=== PATIENT | male | born 1965 | race Caucasian/White ===

== ENCOUNTER 2022-03-05 09:46 | Day surgery (SDC) | payer OTHER ==
[~2022-03-05] VITALS: Ht 177 cm; Wt 91.0 kg
[~2022-03-05 09:46] MED LIST: ASPI-624 PO; FLUO20CA25 PO; GABA300T PO; MTF500T PO
[2022-03-05] MEDS ORDERED: LIDOCAINE 1% INJ 20 ML VIAL ONE (09:51)
--- NOTE | 2022-03-05 19:06 | OPERATIVE REPORT ---
DATE OF SERVICE: 03/05/2022 PREOPERATIVE DIAGNOSIS: Implantable loop recorder at end of life. POSTOPERATIVE DIAGNOSIS: Implantable loop recorder at end of life. PROCEDURE PERFORMED: Implantable loop recorder explantation. DESCRIPTION OF PROCEDURE: [facility] The left prepectoral area, the site of previous implantable loop recorder implantation, was prepared and draped in the usual sterile fashion. Sharp and blunt dissection were used to open the pocket at the medial end of the device and the device was then pulled out from the pocket. The incision was closed with absorbable suture. He tolerated the procedure well. Job ID: [id number] DocumentID: [id number] Dictated Date: 03/05/2022 11:20:28 Hadoop Java Developer Date: 03/05/2022 19:05:46 Dictated By: TEVIN GALVAN MD, MA, FACP, FACC,
== END 2022-03-05 11:32 | disposition home or self-care (01) ==
LOC: CATH 09:46
PROVIDERS: ATTEND Internal Medicine Cardiovascular Disease
DX: Z45.2 Encounter for adjustment and management of vascular access device (principal); F17.210 Nicotine dependence, cigarettes, uncomplicated; E66.9 Obesity, unspecified; Z68.36 Body mass index [BMI] 36.0-36.9, adult; I10 Essential (primary) hypertension; E11.9 Type 2 diabetes mellitus without complications; I77.9 Disorder of arteries and arterioles, unspecified; E78.2 Mixed hyperlipidemia; Z79.899 Other long term (current) drug therapy
CPT/HCPCS: 33286

== ENCOUNTER 2022-04-03 05:43 | Outpatient (CLI) | payer OTHER ==
[~2022-04-03] VITALS: Ht 177.8 cm; Wt 83.9 kg
[2022-05-03] MEDS ORDERED: LISI10TA25 PO (15:17)
== END 2022-05-03 15:21 | disposition home or self-care (01) ==
LOC: PREOP 05:43
PROVIDERS: ATTEND Surgery
DX: Z01.818 Encounter for other preprocedural examination (principal); Z12.11 Encounter for screening for malignant neoplasm of colon

== ENCOUNTER 2022-05-14 09:17 | Day surgery (SDC) | payer OTHER ==
[~2022-05-14] VITALS: Ht 178 cm; Wt 83.9 kg
[2022-05-14] VITALS (7 sets, daily range): BP systolic 106–182; BP diastolic 53–96
[~2022-05-14 09:17] MED LIST changes: +LISI10TA25 PO
[2022-05-14] MEDS ORDERED: LACTATED RINGERS 1,000 ML IV STA (09:26)
[2022-05-14] MEDS ORDERED: HURRICAINE EXT TUBE (BENZOCAINE) XX PRN (09:30)
[2022-05-14] MEDS ORDERED: MIDAZOLAM 2 MG/2 ML (VERSED) VIAL ONE (09:53)
[2022-05-14] MEDS ORDERED: PROPOFOL INJECTION 50 ML IV ONE ×2 (09:53→10:44)
--- NOTE | 2022-05-14 11:47 | Discharge Inst-Simple/Standard ---
Discharge Inst-Standard Patient Instructions/Follow Up Plan of Care/Instructions/FU: 2 weeks Rachelle Activity as Tolerated: Yes Discharge Diet: Regular Diet GERTRUDE DUDLEY DO May 14, 2022 11:46
--- NOTE | 2022-05-14 14:39 | Anesthesia-General Post-Op ---
MAC Patient Condition Mental Status/LOC: Same as Preop Cardiovascular: Satisfactory Nausea/Vomiting: Absent Respiratory: Satisfactory Pain: Controlled Complications: Absent Post Op Complications Complications None Follow Up Care/Instructions Patient Instructions None needed. Anesthesiology Discharge Order Discharge Order Patient is doing well, no complaints, stable vital signs, no apparent adverse anesthesia problems. No complications reported per nursing. BYRON WANG CRNA May 14, 2022 14:39
--- NOTE | 2022-05-14 20:19 | OPERATIVE REPORT ---
DATE OF SERVICE: 05/14/2022 PREOPERATIVE DIAGNOSES: Unintentional weight loss, screening colonoscopy. POSTOPERATIVE DIAGNOSES: Gastritis, colon polyps, ascending colon mass. PROCEDURES: EGD with biopsies, colonoscopy with hot biopsy polypectomy x7, snare polypectomy x10 and Isabela inking of ascending colon mass. SURGEON: Dr. Bush. ANESTHESIA: Per ORACLE ADF DEVELOPER. ESTIMATED BLOOD LOSS: Scant. COMPLICATIONS: None. INDICATIONS: The patient is a 57-year-old male with unintentional weight loss, needing colonoscopy. He understood risks and benefits of procedure and wishes to proceed. Consent was signed in chart. DESCRIPTION OF PROCEDURE: The patient was taken to the endoscopy suite, placed in left lateral recumbent position. Timeout was performed. Scope was inserted in the mouth, down the esophagus, stomach and into the duodenum without difficulty. No polyps, masses or ulcerations within the duodenum. Scope was slowly retracted back to the stomach where it is further insufflated. Slight gastritis appearance. Biopsy of the antrum was obtained. Scope was retroflexed noting no other pathology. Scope was returned to its normal position. slowly withdrawn to distal esophagus. Biopsy of GE junction was obtained. Scope was then slowly retracted back until completely removed, noting no other pathology after a biopsy of the GE junction was obtained. Digital rectal exam was performed. No palpable polyps, masses or ulcerations. The scope was inserted in the rectum and advanced all the way to the cecal, ascending colon area. Large mass in the ascending colon, almost circumferential, but not completely obstructing. Multiple biopsies were obtained. Just distal to this area, Isabela inking was performed. The scope was then continuously retracted back. In the transverse colon, seven polyps, which hot biopsy polypectomies were performed. Scope was then continuously retracted back to the descending colon, which had multiple polyps in the descending colon, which snare polypectomy was performed. In the descending colon, three more polyps were present, which snare polypectomy was performed. In the sigmoid colon, four more polyps present which snare polypectomy was performed. In the sigmoid, two polyps, which hot biopsy polypectomy was performed. Scope was then continuously retracted back to the rectum where it was also retroflexed noting no other pathology. Scope was returned to its normal position and slowly withdrawn until completely removed. So, a total of 7 hot biopsy polypectomies and 10 snare polypectomies were performed during the procedure. RECOMMENDATIONS: The patient will await biopsy results. He will need a right colon resection due to the mass in the right colon. We will also would recommend repeat colonoscopy in approximately 6-12 months after surgery for reevaluation. Job ID: [id number] DocumentID: [id number] Dictated Date: 05/14/2022 11:50:59 Stone Setter Apprentice Date: 05/14/2022 20:12:00 Dictated By: GERTRUDE BUSH DO
== END 2022-05-14 13:12 | disposition home or self-care (01) ==
LOC: ENDO 09:17
PROVIDERS: ATTEND Surgery
DX: D12.3 Benign neoplasm of transverse colon (principal); D12.4 Benign neoplasm of descending colon; D12.5 Benign neoplasm of sigmoid colon; D12.2 Benign neoplasm of ascending colon; F17.210 Nicotine dependence, cigarettes, uncomplicated; K29.70 Gastritis, unspecified, without bleeding; Z28.311 Partially vaccinated for COVID-19
CPT/HCPCS: 82947

== ENCOUNTER → 2022-06-04 | Outpatient (CLI) | payer OTHER ==
[~2022-06-04] MED LIST changes: +CATHETER FLUSH 10 ML SYR IV PRN; +HOLD METFORMIN - RECEIVED CONTRAST 20 ML VIAL IV SCH; +IOHEXOL 350 MG/ML 100 ML (OMNIPAQUE 350) VIAL IV ONE; +NS 100 ML (IVPB) BAG IV ONE
--- NOTE | 2022-06-04 14:29 | Diagnostic Imaging Report ---
EXAMINATION: CT chest, abdomen and pelvis with intravenous contrast. TECHNIQUE: Multiple contiguous axial images were obtained through the chest, abdomen and pelvis after the uneventful administration of intravenous contrast. All CT scans use one or more of the following dose optimizing techniques: automated exposure control, MA and/or KvP adjustment based on patient size and exam type or iterative reconstruction. HISTORY: Colon cancer COMPARISON: None available. FINDINGS: There is no edema or pneumonia. No pleural effusion. No pneumothorax. No suspicious nodules. There is no axillary or supraclavicular lymphadenopathy. There is no mediastinal lymphadenopathy. Heart size is normal. There are mild coronary artery calcifications. No pericardial effusion. Aorta is normal in caliber. The liver is normal without focal lesion. There is no biliary ductal dilation. Gallbladder is normal. Pancreas is normal. There is a 2.5 cm low attenuating splenic lesion. Attenuations below 20 Hounsfield units most likely represents a cyst. Adrenal glands are normal. 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 No suspicious renal lesions. There is no hydronephrosis. Urinary bladder is normal. There is an area of wall thickening in the ascending colon. No obstruction. No bowel inflammation. No free fluid or air. No abdominal or pelvic lymphadenopathy. Aorta is normal in caliber without aneurysm. There are no suspicious osseus lesions. IMPRESSION: 1. Focal wall thickening in the ascending colon in keeping with history of colon cancer. No metastatic disease seen. Dictated by: Dictated on workstation # [id number]
== END ==
LOC: RAD 12:59
PROVIDERS: ATTEND Surgery
DX: R19.09 Other intra-abdominal and pelvic swelling, mass and lump (principal); Z85.038 Personal history of other malignant neoplasm of large intestine
CPT/HCPCS: 71260; 74177

== ENCOUNTER 2022-07-04 09:00 | Inpatient (IN) | payer OTHER ==
[2022-07-04] VITALS (10 sets, daily range): BP systolic 137–178; BP diastolic 61–91
[~2022-07-04] VITALS: Ht 172.8 cm; Wt 84.0 kg
[~2022-07-04 09:00] MED LIST changes: -CATHETER FLUSH 10 ML SYR IV PRN; -HOLD METFORMIN - RECEIVED CONTRAST 20 ML VIAL IV SCH; -IOHEXOL 350 MG/ML 100 ML (OMNIPAQUE 350) VIAL IV ONE; +LISI20TA26 PO; +METF-478 PO; -NS 100 ML (IVPB) BAG IV ONE; +VARE1TAB28 PO
[2022-07-04] MEDS ORDERED: BUP/EPI 0.25% 1:200,000 (MARCAINE) 30 ML VIAL ONE (10:37)
--- NOTE | 2022-07-04 10:37 | Progress Note-Pre Operative ---
Pre-Operative Progress Note Date of Available H&P: Jun 12, 2022 Date H&P Reviewed: Jul 04, 2022 Time H&P Reviewed: 10:37 History & Physical: H&P Reviewed, Patient Examed, No changes noted Pre-Operative Diagnosis: right colon mass GERTRUDE DUDLEY DO Jul 04, 2022 10:37
[2022-07-04] MEDS ORDERED: CLINDAMYCIN 600 MG/50 ML IVPB 50 ML IV ONE (10:45)
[2022-07-04] MEDS ORDERED: metroNIDAZOLE 500MG/100ML IVPB 100 ML IV ONE (10:45)
[2022-07-04] MEDS ORDERED: BUP/EPI 0.25% 1:200,000 (MARCAINE) 30 ML VIAL INJ ONE (10:47)
[2022-07-04] MEDS: LACTATED RINGERS 1,000 ML IV PRN ×3 (10:53→23:57)
[2022-07-04] MEDS ORDERED: MIDAZOLAM 2 MG/2 ML (VERSED) VIAL ONE (11:19)
[2022-07-04] MEDS ORDERED: fentaNYL INJ 100 MCG/2 ML AMP ONE ×2 (11:19→13:07)
[2022-07-04] MEDS ORDERED: ONDANSETRON 4 MG/2 ML (SDV) Z0FRAN ONE (13:06)
[2022-07-04] MEDS ORDERED: proPOfol 200 MG/20 ML (DIPRIVAN) VIAL IV ONE ×2 (13:06→13:07)
[2022-07-04] MEDS ORDERED: LIDOCAINE PF 2% 5 ML (XYLOCAINE) VIAL ONE (13:06)
[2022-07-04] MEDS ORDERED: SEVOFLURANE (ULTANE) 15 ML INHAL SOLN ONE ×2 (13:06→13:07)
[2022-07-04] MEDS ORDERED: ROCURONIUM 50 MG/5 ML (ZEMURON) VIAL IV ONE (13:07)
[2022-07-04] MEDS ORDERED: morphine INJ 10 MG/ML 1ML (SYR OR VIAL) ONE (13:08)
[2022-07-04] MEDS ORDERED: morphine INJ 10 MG/ML 1ML (SYR OR VIAL) IVP ONE (13:15)
[2022-07-04] MEDS ORDERED: MEPERIDINE (DEMEROL) INJ 50 MG/ML IVP ONE (13:15)
[2022-07-04] MEDS ORDERED: ONDANSETRON 4 MG/2 ML (SDV) Z0FRAN IVP PRN (13:15)
[2022-07-04] MEDS ORDERED: fentaNYL INJ 100 MCG/2 ML AMP IVP ONE (13:15)
[2022-07-04] MEDS: CLINDAMYCIN 600 MG/50 ML IVPB 50 ML IV SCH ×2 (16:24→23:51)
[2022-07-04] MEDS: metroNIDAZOLE 500MG/100ML IVPB 100 ML IV SCH ×2 (16:24→23:50)
[2022-07-04] MEDS: morphine INJ 10 MG/ML 1ML (SYR OR VIAL) IVP PRN (16:24)
[2022-07-04] MEDS: HYDROcodone/APAP 5 MG/325 MG (LORTAB) TAB PO PRN ×2 (18:11→23:47)
[2022-07-04] MEDS ORDERED: FLU QUADRIvalent (6 months+) 60 mcg/0.5 ml 2022-23 (Fluzone) IM ONE (18:45)
[2022-07-05 00:04] VITALS: BP 133/71
[2022-07-05] MEDS: HYDROcodone/APAP 5 MG/325 MG (LORTAB) TAB PO PRN ×4 (03:53→17:34)
[2022-07-05 04:07] VITALS: BP 173/75
[2022-07-05 06:29] LABS: BASOPHILS % (AUTO) 0 % (0-10); EOSINOPHILS % (AUTO) 0 % (0-10); HEMATOCRIT 42 % (40-54); HEMOGLOBIN 14.1 g/dL (13.3-17.7); LYMPHOCYTES # (AUTO) 1.6 10^3/uL (1.0-4.0); LYMPHOCYTES % (AUTO) 12 % (12-44); MEAN CORPUSCULAR HEMOGLOBIN 30 pg (25-34); MEAN CORPUSCULAR HGB CONC 34 g/dL (32-36); MEAN CORPUSCULAR VOLUME 91 fL (80-99); MEAN PLATELET VOLUME 11.5 fL (9.0-12.2); MONOCYTES # (AUTO) 1.1 10^3/uL (0.0-1.0); MONOCYTES % (AUTO) 9 % (0-12); NEUTROPHILS # (AUTO) 10.4 10^3/uL (1.8-7.8); NEUTROPHILS % (AUTO) 79 % (42-75); PLATELET COUNT 182 10^3/uL (130-400); WHITE BLOOD COUNT 13.2 10^3/uL (4.3-11.0)
[2022-07-05] MEDS: morphine INJ 10 MG/ML 1ML (SYR OR VIAL) IVP PRN ×4 (06:37→21:20)
[2022-07-05 06:43] LABS: ALBUMIN 3.8 GM/DL (3.2-4.5); BILIRUBIN,TOTAL 0.9 MG/DL (0.1-1.0); CALCIUM 8.9 MG/DL (8.5-10.1); CREATININE SERUM 0.71 MG/DL (0.60-1.30); POTASSIUM 3.6 MMOL/L (3.6-5.0); TOTAL PROTEIN 7.1 GM/DL (6.4-8.2)
[2022-07-05 07:37] VITALS: BP 154/71
--- NOTE | 2022-07-05 08:01 | Progress Note - Surgery ---
MERLE LOPEZ 07/05/22 0801: Subjective Date Seen by a Provider: Jul 05, 2022 Subjective/Events-last exam Post-op Day 1: Xavier Alejo is an 57yo male who received a Right Colon Resection 07/04/22. Pt is currently in a lot pain after yesterday's surgery. Pt has not be able to ambulate or use ICS due to diffuse abdominal pain that seems to intermittently present itself as jolts of pain. States pain is a 9/10 at rest. Pt hasn't been passing gas or had a bowel movement. Original dressing was soiled from drainage but was reinforced last night. Pt's urine rate around .4cc/hr will continue to monitor until within normal limits. Review of Systems General: No Chills, No Night Sweats HEENT: No Head Aches, No Visual Changes, No Eye Pain Pulmonary: No Dyspnea, No Cough Cardiovascular: Chest Pain (While Breathing. Radiation of pain from abdomen region.); No: Palpitations Gastrointestinal: Abdominal Pain; No: Nausea, Vomiting Neurological: No: Weakness, Numbness Objective Exam Vital Signs Date Time Temp Pulse Resp B/P (MAP) Pulse Ox O2 Delivery O2 Flow Rate FiO2 07/05/22 07:37 37.0 82 19 154/71 (98) 91 Room Air 07/05/22 04:07 37.1 84 16 173/75 (107) 95 Room Air 07/05/22 00:04 36.8 82 16 133/71 (91) 92 Room Air 07/04/22 20:26 37.2 83 16 151/77 (101) 93 Room Air 07/04/22 19:05 95 Room Air 0.00 21 07/04/22 17:17 93 Room Air 07/04/22 16:24 36.1 99 16 142/91 (108) 93 Nasal Cannula 5.00 07/04/22 14:00 36.8 78 19 173/75 (107) 96 Room Air 07/04/22 14:00 Nasal Cannula 3.00 07/04/22 14:00 36.4 20 145/65 (91) 97 Nasal Cannula 3.00 07/04/22 13:50 18 147/62 (90) 97 Nasal Cannula 3.00 07/04/22 13:48 Nasal Cannula 3.00 07/04/22 13:46 Room Air 07/04/22 13:45 OxyMask 1.50 07/04/22 13:41 OxyMask 3.00 07/04/22 13:40 18 142/62 (88) 96 OxyMask 3.00 07/04/22 13:35 OxyMask 3.00 07/04/22 13:32 OxyMask 6.00 07/04/22 13:30 18 161/74 (103) 100 OxyMask 6.00 07/04/22 13:24 OxyMask 6.00 07/04/22 13:20 18 145/66 (92) 100 OxyMask 6.00 07/04/22 13:15 OxyMask 6.00 07/04/22 13:10 20 178/77 (110) 100 OxyMask 6.00 07/04/22 13:00 36.7 20 137/61 (86) 100 OxyMask 6.00 07/04/22 13:00 OxyMask 6.00 07/04/22 10:33 36.3 77 18 163/86 (111) 97 Room Air I & O 07/05/22 07:00 Intake Total 1750 ml Output Total 645 ml Balance 1105 ml Capillary Refill : General Appearance: No Apparent Distress HEENT: PERRL/EOMI Neck: Non Tender, Supple Respiratory: Lungs Clear, Normal Breath Sounds Cardiovascular: No Edema, No JVD; No Diastolic Murmur, No Systolic Murmur, No Irregularly Irregular; Tachycardia Peripheral Pulses: 2+ Radial Pulses (R), 2+ Radial Pulses (L) Gastrointestinal: normal bowel sounds, non tender Extremity: Normal Inspection, Non Tender, No Calf Tenderness Neurologic/Psychiatric: Alert, Oriented x3 Skin: Normal Color, Warm/Dry Results Lab Laboratory Tests 07/04/22 10:25: Glucometer 126H 07/05/22 05:27: White Blood Count 13.2H, Red Blood Count 4.65, Hemoglobin 14.1, Hematocrit 42, Mean Corpuscular Volume 91, Mean Corpuscular Hemoglobin 30, Mean Corpuscular Hemoglobin Concent 34, Red Cell Distribution Width 13.3, Platelet Count 182, Mean Platelet Volume 11.5, Immature Granulocyte % (Auto) 0, Neutrophils (%) (Auto) 79H, Lymphocytes (%) (Auto) 12, Monocytes (%) (Auto) 9, Eosinophils (%) (Auto) 0, Basophils (%) (Auto) 0, Neutrophils # (Auto) 10.4H, Lymphocytes # (Auto) 1.6, Monocytes # (Auto) 1.1H, Eosinophils # (Auto) 0.0, Basophils # (Auto) 0.0, Immature Granulocyte # (Auto) 0.0, Sodium Level 141, Potassium Level 3.6, Chloride Level 106, Carbon Dioxide Level 24, Anion Gap 11, Blood Urea Nitrogen 6L, Creatinine 0.71, Estimat Glomerular Filtration Rate 106, BUN/Creatinine Ratio 8, Glucose Level 131H, Calcium Level 8.9, Corrected Calcium 9.1, Total Bilirubin 0.9, Aspartate Amino Transf (AST/SGOT) 14, Alanine Aminotransferase (ALT/SGPT) 23, Alkaline Phosphatase 58, Total Protein 7.1, Albumin 3.8 Assessment/Plan Assessment/Plan Assessment/Plan Post-operative Right Colon Resection Consider scheduled pain management; Consider using NSAID's over opioid medication due to potential progression to post-operative ileus. Encourage use of ICS and Ambulation Continue Clear Liquid diet and consider progressing to softs after consistent gas production or bowel movement Consider monitoring urine output and rate. Pt's rate is .4cc/hr today w/in 12hrs which is slightly below normal. Follow WBC Supportive Care DANIEL DUDLEY DO 07/06/22 1521: Subjective Subjective/Events-last exam Pain not controlled. Not ambulating much or using IS. No flatus. Tolerating liquids. Denies fever sweats chills shortness of breath or chest pain. Objective Exam General Appearance: No Apparent Distress, WD/WN HEENT: PERRL/EOMI, Normal ENT Inspection Neck: Non Tender, Supple Respiratory: Chest Non Tender, No Accessory Muscle Use, No Respiratory Distress Cardiovascular: Regular Rate, Rhythm, No JVD Gastrointestinal: normal bowel sounds, non tender Extremity: Normal Inspection, Non Tender Neurologic/Psychiatric: Alert, Oriented x3 Skin: Normal Color, Warm/Dry Lymphatic: No Adenopathy Assessment/Plan Assessment/Plan Assessment/Plan s/p lap hand assisted right colon resection Pain control Encourage use of ICS and Ambulation Continue Clear Liquid diet and consider progressing to softs after consistent gas production or bowel movement Dc davila Supportive Care Supervisory-Addendum Brief Verification & Attestation Participated in pt care: history, MDM, physical Personally performed: exam, history, MDM, supervision of care Care discussed with: Medical Student Procedures: n/a Results interpretation: Verified all documentation Verification and Attestation of Medical Student E/M Service A medical student performed and documented this service in my presence. I revie wed and verified all information documented by the medical student and made modifications to such information, when appropriate. I personally performed the physical exam and medical decision making. Daniel Dudley, Jul 05, 2022,18:21 MERLE LOPEZ Jul 05, 2022 08:01 DANIEL DUDLEY DO Jul 06, 2022 15:21
--- NOTE | 2022-07-05 08:03 | Anesthesia-General Post-Op ---
General Patient Condition Mental Status/LOC: Same as Preop Cardiovascular: Satisfactory Nausea/Vomiting: Absent Respiratory: Satisfactory Pain: Controlled Complications: Absent Post Op Complications Complications None Follow Up Care/Instructions Patient Instructions None needed. Anesthesia/Patient Condition Patient Condition Patient is doing well, no complaints, stable vital signs, no apparent adverse anesthesia problems. No complications reported per nursing. CESAR BOBO CRNA Jul 05, 2022 08:03
[2022-07-05] MEDS: lisINopril 20 MG (PRINIVIL) TABLET PO SCH (09:22)
[2022-07-05] MEDS: NICOTINE 21 MG (NICODERM) PATCH TD SCH (09:23)
[2022-07-05] MEDS: LACTATED RINGERS 1,000 ML IV PRN ×2 (09:23→17:34)
[2022-07-05] MEDS: ENOXAPARIN 40 MG/0.4 ML (LOVENOX) SYR SC SCH (09:23)
--- NOTE | 2022-07-05 10:35 | Physical Therapy Evaluation ---
PT Evaluation-General Medical Diagnosis Admission Date Jul 04, 2022 at 10:08 Medical Diagnosis: ascending colon mass Onset Date: Jul 04, 2022 Therapy Diagnosis Therapy Diagnosis: debility/weakness Height/Weight Height (Feet): 5 Height (Inches): 10.00 Weight (Pounds): 232 Precautions Precautions/Isolations: Standard Precautions Referral Physician: Rachelle Reason for Referral: Evaluation/Treatment Medical History Current History unexplained weight loss over 7 months Reviewed History: Yes Social History Home: Single Level Current Living Status: Spouse Prior Prior Level of Function SCALE: Activities may be completed with or without assistive devices. 2-Ppioxcgxbk-xbsdufx completes the activity by him/herself with no assistance from a helper. 5-Set-up or Clean-up Assistance-helper sets up or cleans up; patient completes activity. [place] assists only prior to or following the activity. 4-Supervision or Touching Assistance-helper provides verbal cues and/or touching/steadying and/or contact guard assistance as patient completes activity. Assistance may be provided throughout the activity or intermittently. 3-Partial/Moderate Assistance-helper does LESS THAN HALF the effort. [place] lifts, holds or supports trunk or limbs, but provides less than half the effort. 2-Substantial/Maximal Assistance-helper does MORE THAN HALF the effort. [place] lifts or holds trunk or limbs and provides more than half the effort. 9-Sujfvytvw-baahmn does ALL the effort. Patient does none of the effort to complete the activity. Or, the assistance of 2 or more helpers is required for the patient to complete the activity. If activity was not attempted, code reason: 7-Patient Refused. 9-Not Applicable-not attempted and the patient did not perform the activity before the current illness, exacerbation or injury. 10-Not Attempted due to Environmental Limitations-(lack of equipment, weather restraints, etc.). 88-Not Attempted due to Medical Conditions or Safety Concerns. Bed Mobility: 6 Transfers (B,C,W/C): 6 Gait: 6 Stairs: 6 Indoor Mobility (Ambulation): Independent Stairs: Independent Prior Devices Use: None PT Evaluation-Current Subjective Patient agrees to PT. Pain Numeric Pain Scale: 5-Moderate Pain Location: Medial, Lower Location Body Site: Abdomen Pain Description: Pressure, Acute Objective Patient Orientation: Normal For Age Attachments: Edgar Catheter, IV ROM/Strength ROM Lower Extremities bilateral LE WFL Strength Lower Extremities 4/5 grossly bilateral LE all planes Integumentary/Posture Integumentary refer to nursing notes Bowel Incontinence: No Bladder Incontinence: Edgar Cath Posture WFL Neuromuscular (Tone, Coordination, Reflexes) grossly intact Sensory Vision: Functional Hearing: Functional Sensation Right Lower Extremit: Intact Sensation Left Lower Extremity: Intact Transfers Lying to Sitting/Side of Bed(Q: 6 Sit to Stand (QC): 6 Chair/Evq-gd-Qzbaq Xfer(QC): 6 Gait Mode of Locomotion: Walk Anticipated Mode of Locomotion: Walk Walk 10 feet (QC): 6 Walk 50 ft with 2 Turns(QC): 6 Walk 150 ft (QC): 6 Distance: 400' Gait Assistive Device: FWW Comments/Gait Description FWW use to relieve abdominal pressure Balance Sitting Static: Normal Sitting Dynamic: Normal Standing Static: Normal Standing Dynamic: Normal Assessment/Needs Patient instructed to ambulate PRN with nursing in hallway. Patient is independent with all mobility and is up in recliner with needs met. No skilled PT intervention required. Rehab Potential: Fair PT Plan Treatment/Plan Treatment Plan: Discontinue PT, goals met Treatment Duration: Jul 05, 2022 Frequency: 1 time per week Estimated Hrs Per Day: .25 hour per day Patient and/or Family Agrees t: Yes Discharge Recommendations Therapy Discharge Recommendati: Home & Family Time Time In: 849 Time Out: 900 DATE: Jul 05, 2022 Total Billed Treatment Time: 11 Total Billed Treatment 1 visit EVLowC 11 min LIAN ROBERTS PT Jul 05, 2022 10:35
[2022-07-05 11:23] VITALS: BP 135/74
--- NOTE | 2022-07-05 12:53 | Consultation - Hospitalist ---
[facility] 07/05[facility]22 1253: HPI History of Present Illness: HPI/Chief Complaint Xavier Alejo is a 57y M with PMH of HTN, DM who is s/p right colon resection performed on 07/04 for colon mass. IM consult ordered to monitor patient's blood pressure given HTN. He lives in [place] with his and daughter. He is a current smoker 1 ppd for 40 years. He underwent colonoscopy with Dr. Bush on 05/14/22 after experiencing unintentional weight loss which revealed a mass in the ascending colon. Today he presents sitting in bedside chair. He had been in a lot of pain up to 10/10 in severity all over the abdomen, worst on the right side, this morning. It improves with the pain medication but worsens with movement. Denies nausea, vomiting, BM, flatus, SOB, CP. He had a headache last night that resolved with pain medication and denies DWYER today. PT walked him through the halls today. Source: patient Exam Limitations: no limitations Date Seen 07/05/22 Attending Physician Center/[facility] PCP Admitting Physician: Daniel Bush DO Attending Physician: Daniel Bush DO Referring Physician Date of Admission Jul 04, 2022 at 10:08 Home Medications & Allergies Home Medications Reviewed patient Home Medication Reconciliation performed by pharmacy medication reconciliations electronics engineering technician and/or nursing. Patients Allergies have been reviewed. Allergies Allergies Coded Allergies Penicillins (Unverified Allergy, Unknown, 07/02/22) Past Jdlqgnc-Lailod-Rnbaae Hx Patient Social History Marrital Status: Number of Children: 1 Employed/Student: unemployed Tobacco Use?: Yes Tobacco type used: Cigarettes Smoking Status: Current Everyday Smoker Use of E-Cig and/or Vaping dev: No Substance use?: No Alcohol Use?: No Pt feels they are or have been: No Immunizations Up To Date First/Initial COVID19 Vaccinat: 2020 Second COVID19 Vaccination Warner: 2020 Seasonal Allergies Seasonal Allergies: No Current Status Advance Directives: No Communicates: Verbally Primary Language: Albanian Preferred Spoken Language: Albanian Is interpretation needed?: No Implanted or Applied Medical D: None Past Medical History Surgeries: Abdominal (hiatal hernia, right colon resection) Hypertension, Syncope Chronic Constipation, Hemorrhoids, Hiatal Hernia Diabetes, Non-Insulin dep Loss of Vision: Denies Hearing Impairment: Denies Anxiety, Depression Blood Disorders: No Family Medical History No Pertinent Family Hx Review of Systems Constitutional: No chills, No fever EENTM: No nose congestion, No throat pain Respiratory: No cough, No dyspnea on exertion Cardiovascular: No chest pain, No edema Gastrointestinal: RUQ, RLQ; No nausea, No vomiting Genitourinary: No dysuria, No hematuria Musculoskeletal: No gout, No joint swelling Skin: No change in color, No change in hair/nails, No rash Psychiatric/Neurological: Denies Anxiety; Headache Physical Exam Physical Exam Vital Signs Vital Signs - First Documented 07/04/22 07/04/22 10:33 19:05 Temp 36.3 Pulse 77 Resp 18 B/P (MAP) 163/86 (111) Pulse Ox 97 O2 Delivery Room Air FiO2 21 Capillary Refill : Height, Weight, BMI Height: 5'10.00" Weight: 232lbs. oz. 105.394274da; 28.13 BMI Method: General Appearance: No Apparent Distress, WD/WN HEENT: PERRL/EOMI, Pharynx Normal, Moist Mucous Membranes Neck: Full Range of Motion, Normal Inspection, Non Tender, Supple Respiratory: Chest Non Tender, Lungs Clear, Normal Breath Sounds, No Accessory Muscle Use, No Respiratory Distress Cardiovascular: Regular Rate, Rhythm, No Edema, No Gallop, No JVD, No Murmur, Normal Peripheral Pulses Gastrointestinal: Soft, Abnormal Bowel Sounds (hypoactive), Tenderness (diffusely, worst in RUQ and RLQ) Extremity: Normal Capillary Refill, Normal Inspection, Normal Range of Motion, Non Tender, No Calf Tenderness, No Pedal Edema Neurologic/Psychiatric: Alert, Oriented x3, No Motor/Sensory Deficits, Normal Mood/Affect, instant powder supervisor II-XII Norm as Tested Skin: Normal Color, Warm/Dry Results Results/Procedures Labs Laboratory Tests 07/05/22 05:27 Patient resulted labs reviewed. Assessment/Plan Assessment and Plan Assess & Plan/Chief Complaint S/p Right Colon Resection d/t colon mass 07/04/22 HTN DM Current smoker Encourage use of ICS and Ambulation Home meds Pain control Clear liquid diet Supportive Care ROS EMARIE GAR DO 07/05/22 2128: HPI History of Present Illness: Source: patient Exam Limitations: no limitations Supervisory-Addendum Brief Verification & Attestation Participated in pt care: history, MDM, physical Personally performed: exam, history, MDM, supervision of care Care discussed with: Medical Student Procedures: n/a Results interpretation: Verified all documentation Verification and Attestation of Medical Student E/M Service A medical student performed and documented this service in my presence. I reviewed and verified all information documented by the medical student and made modifications to such information, when appropriate. I personally performed the physical exam and medical decision making. Rose Marie Gar Jul 05, 2022,21:27 NIKKI ALTMAN Jul 05, 2022 12:53 ROSE MARIE GAR DO Jul 05, 2022 21:28
--- NOTE | 2022-07-05 14:06 | OPERATIVE REPORT ---
DATE OF SERVICE: 07/04/2022 PREOPERATIVE DIAGNOSIS: Right colon mass. POSTOPERATIVE DIAGNOSIS: Right colon mass. PROCEDURE: Laparoscopic-assisted right colon resection. SURGEON: Daniel Bush DO BUNDLER: Colton Parkinson DO, assisted in retraction, dissection, and closure. ANESTHESIA: General. ESTIMATED BLOOD LOSS: Minimal. COMPLICATIONS: None. INDICATIONS: The patient is a 57-year-old male who was having some weight loss. He had endoscopy demonstrating a right colon mass. He was discussed risks and benefits of surgical intervention. He understands risks and benefits and wishes to proceed. Consent was signed and on the chart. DESCRIPTION OF PROCEDURE: The patient was brought to the operating suite where he was prepped and draped in sterile fashion. Timeout was performed. Midline incision was made around the umbilicus for a hand port and a 12 mm incision was made superior to this area at midline. A 4-mm trocar was placed under direct visualization. The abdomen was then insufflated. A 5 mm trocar was placed in the right lower quadrant. The tattoo was noted in the right colon. The right colon was mobilized along the white line of Toldt making a midline structure. Some adhesions to the distal ileum had to be dissected free. Once everything was able to be brought out through the midline, a YURI stapler was used to transect the ileum and the colon distal to the tattooing. A LigaSure was then used to divide the mesentery. A [id number] anastomosis was created using a linear stapler. Cross stitch was placed with 3-0 Vicryl. The lumen was patent of the anastomosis. Hemostasis was achieved. The abdomen was irrigated and suctioned. No other pathology noted within the abdomen. The abdomen was then desufflated the midline incision fascia was then closed using 1-0 looped PDS. The wound was then irrigated. The abdomen was then reinsufflated and reinspected. No other pathology noted. Hemostasis was still achieved. The abdomen was then desufflated. The trocars were removed. The skin was then closed with jl. The abdomen was washed and dried and sterile bandages applied. The patient tolerated the procedure well with no complications, taken to recovery room in stable condition. Job ID: [id number] DocumentID: [id number] Dictated Date: 07/05/2022 08:32:02 Basket Bottom Machine Operator Date: 07/05/2022 14:04:00 Dictated By: DO WILLIAN WALTERS
[2022-07-05 15:17] VITALS: BP 170/72
[2022-07-05 19:02] VITALS: BP 158/80
[2022-07-06] VITALS (7 sets, daily range): BP systolic 142–189; BP diastolic 79–89
[2022-07-06] MEDS: HYDROcodone/APAP 5 MG/325 MG (LORTAB) TAB PO PRN ×4 (01:01→15:04)
[2022-07-06] MEDS: LACTATED RINGERS 1,000 ML IV PRN ×2 (01:54→19:37)
[2022-07-06] MEDS: morphine INJ 10 MG/ML 1ML (SYR OR VIAL) IVP PRN ×2 (04:40→19:37)
--- NOTE | 2022-07-06 05:45 | Progress Note - Hospitalist ---
Subjective HPI/CC On Admission Date Seen by Provider: Jul 06, 2022 Time Seen by Provider: 05:45 Xavier Alejo is a 57y M with PMH of HTN, DM who is s/p right colon resection performed on 07/04 for colon mass. IM consult ordered to monitor patient's blood pressure given HTN. He lives in [place] with his and daughter. He is a current smoker 1 ppd for 40 years. He underwent colonoscopy with Dr. Bush on 05/14/22 after experiencing unintentional weight loss which revealed a mass in the ascending colon. Today he presents sitting in bedside chair. He had been in a lot of pain up to 10/10 in severity all over the abdomen, worst on the right side, this morning. It improves with the pain medication but worsens with movement. Denies nausea, vomiting, BM, flatus, SOB, CP. He had a headache last night that resolved with pain medication and denies DWYER today. PT walked him through the halls today. Subjective/Events-last exam Patient doing about the same Pain is improved now it was really bad Supportive care will continue Ambulating well Labs are stable Review of Systems General: Fatigue, Malaise Gastrointestinal: Abdominal Pain Objective Exam Vital Signs Vital Signs Date Time Temp Pulse Resp B/P (MAP) Pulse Ox O2 Delivery O2 Flow Rate FiO2 07/06/22 11:26 36.6 90 18 142/82 (102) 93 Room Air 07/06/22 11:16 0.00 07/04/22 19:05 21 Capillary Refill : General Appearance: No Apparent Distress, WD/WN, Chronically ill Respiratory: Lungs Clear, Normal Breath Sounds Cardiovascular: Regular Rate, Rhythm Gastrointestinal: Tenderness Results/Procedures Lab Laboratory Tests 07/06/22 05:35 Patient resulted labs reviewed. Assessment/Plan Assessment and Plan Assess & Plan/Chief Complaint S/p Right Colon Resection d/t colon mass 07/04/22 HTN DM Current smoker Encourage use of ICS and Ambulation Home meds Pain control Clear liquid diet Supportive Care PAU GAR DO Jul 06, 2022 05:45
[2022-07-06 06:06] LABS: BASOPHILS % (AUTO) 0 % (0-10); EOSINOPHILS # (AUTO) 0.1 10^3/uL (0.0-0.3); EOSINOPHILS % (AUTO) 1 % (0-10); HEMATOCRIT 43 % (40-54); HEMOGLOBIN 13.9 g/dL (13.3-17.7); LYMPHOCYTES # (AUTO) 1.4 10^3/uL (1.0-4.0); LYMPHOCYTES % (AUTO) 10 % (12-44); MEAN CORPUSCULAR HEMOGLOBIN 30 pg (25-34); MEAN CORPUSCULAR HGB CONC 33 g/dL (32-36); MEAN CORPUSCULAR VOLUME 92 fL (80-99); MEAN PLATELET VOLUME 11.2 fL (9.0-12.2); MONOCYTES # (AUTO) 1.1 10^3/uL (0.0-1.0); MONOCYTES % (AUTO) 8 % (0-12); NEUTROPHILS # (AUTO) 11.1 10^3/uL (1.8-7.8); NEUTROPHILS % (AUTO) 80 % (42-75); PLATELET COUNT 201 10^3/uL (130-400); WHITE BLOOD COUNT 13.9 10^3/uL (4.3-11.0)
[2022-07-06 06:33] LABS: ALBUMIN 3.8 GM/DL (3.2-4.5); BILIRUBIN,TOTAL 0.7 MG/DL (0.1-1.0); CALCIUM 9.4 MG/DL (8.5-10.1); CREATININE SERUM 0.73 MG/DL (0.60-1.30); POTASSIUM 3.5 MMOL/L (3.6-5.0); TOTAL PROTEIN 7.5 GM/DL (6.4-8.2)
--- NOTE | 2022-07-06 08:52 | Progress Note - Surgery ---
MERLE LOPEZ 07/06/22 0852: Subjective Date Seen by a Provider: Jul 06, 2022 Time Seen by a Provider: 08:46 Subjective/Events-last exam Post-Operative Colon Resection Day 2: Pt was seen and interviewed today. Pt was doing well while laying down n bed. He was alert and oriented, and was able to finish interview without any complaints of pain which is an improvement from yesterday. Pt states he isn't in any current pain and is able to ambulate in the halls as well as to the restroom. Edgar catheter was discontinued yesterday due to sufficient urine output and pt is urinating okay without any issues. Pt states that he hasn't had any bowel movements or flatulence since operation. Incisions are dry and healing well. Review of Systems General: No Chills, No Night Sweats, No Fatigue HEENT: No Head Aches, No Visual Changes, No Eye Pain Pulmonary: No Dyspnea, No Cough Cardiovascular: No: Chest Pain, Palpitations, Edema Gastrointestinal: No: Nausea, Vomiting, Abdominal Pain Genitourinary: No Dysuria, No Frequency Neurological: No: Weakness Objective Exam Vital Signs Date Time Temp Pulse Resp B/P (MAP) Pulse Ox O2 Delivery O2 Flow Rate FiO2 07/06/22 07:39 36.8 92 18 189/83 (118) 97 Room Air 07/06/22 04:40 37.0 07/06/22 04:38 168/88 (114) 07/06/22 03:41 37.0 92 20 188/89 (122) 95 Room Air 07/06/22 00:00 37.5 101 18 183/79 (113) 93 Nasal Cannula 1.00 07/05/22 21:00 Room Air 07/05/22 19:02 37.6 88 18 158/80 (106) 93 Room Air 0.00 0.00 07/05/22 15:17 37.4 94 20 170/72 (104) 95 Room Air 0.00 0.00 07/05/22 11:23 37.2 96 18 135/74 (94) 94 Room Air 07/05/22 09:00 Room Air I & O 07/06/22 07:00 Intake Total 2735 ml Output Total 3600 ml Balance -865 ml Capillary Refill : General Appearance: No Apparent Distress, WD/WN HEENT: PERRL/EOMI, Pharynx Normal, Moist Mucous Membranes Neck: Full Range of Motion, Normal Inspection, Non Tender, Supple Respiratory: Chest Non Tender, Lungs Clear, Normal Breath Sounds, No Accessory Muscle Use, No Respiratory Distress Cardiovascular: Regular Rate, Rhythm, No Edema, No Gallop, No JVD, No Murmur, Normal Peripheral Pulses Peripheral Pulses: 2+ Radial Pulses (R), 2+ Radial Pulses (L) Gastrointestinal: normal bowel sounds, tenderness (Tenderness w/ palpation ) Extremity: Normal Capillary Refill, Normal Inspection, Normal Range of Motion, Non Tender, No Calf Tenderness, No Pedal Edema Neurologic/Psychiatric: Alert, Oriented x3, No Motor/Sensory Deficits, Normal Mood/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, 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 Norm as Tested Skin: Normal Color, Warm/Dry Results Lab Laboratory Tests 07/06/22 05:35: White Blood Count 13.9H, Red Blood Count 4.61, Hemoglobin 13.9, Hematocrit 43, Mean Corpuscular Volume 92, Mean Corpuscular Hemoglobin 30, Mean Corpuscular Hemoglobin Concent 33, Red Cell Distribution Width 13.2, Platelet Count 201, Gayatri n Platelet Volume 11.2, Immature Granulocyte % (Auto) 0, Neutrophils (%) (Auto) 80H, Lymphocytes (%) (Auto) 10L, Monocytes (%) (Auto) 8, Eosinophils (%) (Auto) 1, Basophils (%) (Auto) 0, Neutrophils # (Auto) 11.1H, Lymphocytes # (Auto) 1.4, Monocytes # (Auto) 1.1H, Eosinophils # (Auto) 0.1, Basophils # (Auto) 0.0, Immature Granulocyte # (Auto) 0.1, Sodium Level 141, Potassium Level 3.5L, Chloride Level 104, Carbon Dioxide Level 26, Anion Gap 11, Blood Urea Nitrogen 5L, Creatinine 0.73, Estimat Glomerular Filtration Rate 105, BUN/Creatinine Ratio 7, Glucose Level 167H, Calcium Level 9.4, Corrected Calcium 9.6, Total Bilirubin 0.7, Aspartate Amino Transf (AST/SGOT) 12, Alanine Aminotransferase (ALT/SGPT) 19, Alkaline Phosphatase 56, Total Protein 7.5, Albumin 3.8 Microbiology 07/04/22 MRSA Screen - Final, Complete MRSA not isolated Assessment/Plan Assessment/Plan Assessment/Plan Post-operative Right Colon Resection Consider scheduled pain management; Consider using NSAID's over opioid medication due to potential progression to post-operative ileus. Encourage use of ICS and Ambulation Continue Clear Liquid diet and consider progressing to softs after consistent gas production or bowel movement. Follow WBC. Increased from yesterday; 13.9 from 13.2. Supportive Care DANIEL BUSH DO 07/06/22 1543: Subjective Subjective/Events-last exam Pain better today. Ambulating and using incentive spirometer. Tolerating clears. No flatus or bm yet. Denies n/v fever sweats chills shortness of breath or chest pain. Objective Exam General Appearance: No Apparent Distress, WD/WN HEENT: PERRL/EOMI, Normal ENT Inspection Neck: Normal Inspection, Non Tender Respiratory: Chest Non Tender, No Accessory Muscle Use, No Respiratory Distress Cardiovascular: Regular Rate, Rhythm, No JVD Gastrointestinal: soft, tenderness (incsional c/d/i no signs of infection) Extremity: Non Tender Neurologic/Psychiatric: Alert, Oriented x3 Skin: Normal Color, Warm/Dry Lymphatic: No Adenopathy Assessment/Plan Assessment/Plan Assessment/Plan s/p lap hand assisted right colon resection pain control ambulate IS dvt prophylaxis await bowel function and then will advance diet Supervisory-Addendum Brief Verification & Attestation Participated in pt care: history, MDM, physical Personally performed: exam, history, MDM, supervision of care Care discussed with: Medical Student Procedures: n/a Results interpretation: Verified all documentation Verification and Attestation of Medical Student E/M Service A medical student performed and documented this service in my presence. I reviewed and verified all information documented by the medical student and made modifications to such information, when appropriate. I personally performed the physical exam and medical decision making. Daniel Bush, Jul 06, 2022,15:24 MERLE LOPEZ Jul 06, 2022 08:52 DANIEL BUSH DO Jul 06, 2022 15:43
[2022-07-06] MEDS: lisINopril 20 MG (PRINIVIL) TABLET PO SCH (09:54)
[2022-07-06] MEDS: NICOTINE PATCH REMOVAL TP SCH (09:55)
[2022-07-06] MEDS: ENOXAPARIN 40 MG/0.4 ML (LOVENOX) SYR SC SCH (09:55)
[2022-07-06] MEDS: NICOTINE 21 MG (NICODERM) PATCH TD SCH (09:55)
[2022-07-07] VITALS (7 sets, daily range): BP systolic 135–183; BP diastolic 71–85
[2022-07-07] MEDS: HYDROcodone/APAP 5 MG/325 MG (LORTAB) TAB PO PRN ×2 (00:11→09:34)
[2022-07-07] MEDS: morphine INJ 10 MG/ML 1ML (SYR OR VIAL) IVP PRN ×3 (03:38→23:35)
[2022-07-07] MEDS: LACTATED RINGERS 1,000 ML IV PRN ×3 (04:05→19:55)
--- NOTE | 2022-07-07 05:47 | Progress Note - Hospitalist ---
Subjective HPI/CC On Admission Date Seen by Provider: Jul 07, 2022 Time Seen by Provider: 06:00 Xavier Alejo is a 57y M with PMH of HTN, DM who is s/p right colon resection performed on 07/04 for colon mass. IM consult ordered to monitor patient's blood pressure given HTN. He lives in [place] with his and daughter. He is a c urrent smoker 1 ppd for 40 years. He underwent colonoscopy with Dr. Bush on 05/14/22 after experiencing unintentional weight loss which revealed a mass in the ascending colon. Today he presents sitting in bedside chair. He had been in a lot of pain up to 10/10 in severity all over the abdomen, worst on the right side, this morning. It improves with the pain medication but worsens with movement. Denies nausea, vomiting, BM, flatus, SOB, CP. He had a headache last night that resolved with pain medication and denies DWYER today. PT walked him through the halls today. Subjective/Events-last exam Patient about the same Abdomen still distended Minimal bowel sounds noted Elevated blood pressure will require antihypertensives Review of Systems Gastrointestinal: Abdominal Pain Objective Exam Vital Signs Vital Signs Date Time Temp Pulse Resp B/P (MAP) Pulse Ox O2 Delivery O2 Flow Rate FiO2 07/07/22 09:39 93 Room Air 07/07/22 07:04 37.1 87 20 166/84 (111) 07/06/22 19:02 0.00 0.00 07/04/22 19:05 21 Capillary Refill : General Appearance: No Apparent Distress, WD/WN, Chronically ill Respiratory: Lungs Clear Cardiovascular: Regular Rate, Rhythm Gastrointestinal: Abnormal Bowel Sounds Results/Procedures Lab Laboratory Tests 07/07/22 06:16 Patient resulted labs reviewed. Assessment/Plan Assessment and Plan Assess & Plan/Chief Complaint S/p Right Colon Resection d/t colon mass 07/04/22 HTN DM Current smoker Hypertension Plan: Encourage use of ICS and Ambulation Home meds Pain control Clear liquid diet Supportive Care Blood pressure meds PAU GAR DO Jul 07, 2022 05:47
[2022-07-07] MEDS: amLODIPine 5 MG (NORVASC) TAB PO SCH ×2 (06:02→09:34)
[2022-07-07 07:16] LABS: BASOPHILS % (AUTO) 0 % (0-10); EOSINOPHILS # (AUTO) 0.1 10^3/uL (0.0-0.3); EOSINOPHILS % (AUTO) 1 % (0-10); HEMATOCRIT 47 % (40-54); HEMOGLOBIN 15.6 g/dL (13.3-17.7); LYMPHOCYTES # (AUTO) 1.4 10^3/uL (1.0-4.0); LYMPHOCYTES % (AUTO) 9 % (12-44); MEAN CORPUSCULAR HEMOGLOBIN 30 pg (25-34); MEAN CORPUSCULAR HGB CONC 33 g/dL (32-36); MEAN CORPUSCULAR VOLUME 90 fL (80-99); MEAN PLATELET VOLUME 11.7 fL (9.0-12.2); MONOCYTES # (AUTO) 1.7 10^3/uL (0.0-1.0); MONOCYTES % (AUTO) 11 % (0-12); NEUTROPHILS # (AUTO) 12.4 10^3/uL (1.8-7.8); NEUTROPHILS % (AUTO) 79 % (42-75); PLATELET COUNT 246 10^3/uL (130-400); WHITE BLOOD COUNT 15.7 10^3/uL (4.3-11.0)
[2022-07-07 07:28] LABS: POTASSIUM 3.6 MMOL/L (3.6-5.0)
[2022-07-07 07:29] LABS: CALCIUM 9.8 MG/DL (8.5-10.1)
[2022-07-07 07:30] LABS: TOTAL PROTEIN 7.9 GM/DL (6.4-8.2)
[2022-07-07 07:32] LABS: BILIRUBIN,TOTAL 0.6 MG/DL (0.1-1.0)
[2022-07-07 07:34] LABS: CREATININE SERUM 0.71 MG/DL (0.60-1.30)
[2022-07-07 07:58] LABS: BAND NEUTROPHILS 4 %; NEUTROPHILS % (MANUAL) 72 %
[2022-07-07 07:59] LABS: BASOPHILS % (MANUAL) 0 %; EOSINOPHILS % (MANUAL) 2 %; LYMPHOCYTES % (MANUAL) 8 %; MONOCYTES % (MANUAL) 14 %; RBC MORPH NORMAL
[2022-07-07] MEDS: NICOTINE 21 MG (NICODERM) PATCH TD SCH (09:34)
[2022-07-07] MEDS: NICOTINE PATCH REMOVAL TP SCH (09:34)
[2022-07-07] MEDS: lisINopril 20 MG (PRINIVIL) TABLET PO SCH (09:34)
[2022-07-07] MEDS: ONDANSETRON 4 MG/2 ML (SDV) Z0FRAN IVP PRN (09:51)
[2022-07-07] MEDS: ENOXAPARIN 40 MG/0.4 ML (LOVENOX) SYR SC SCH (10:07)
[2022-07-07] MEDS: PROMETHAZINE INJ 25 MG/ML (PHENERGAN) AMP IVP PRN (11:39)
--- NOTE | 2022-07-07 11:59 | Diagnostic Imaging Report ---
EXAMINATION: Chest 1 view HISTORY: Tube placement COMPARISON: None available. FINDINGS: The lungs are clear without edema or pneumonia. No pleural effusion or pneumothorax. Heart size is normal. Gastric tube is in the distal esophagus. IMPRESSION: 1. Clear lungs. 2. Gastric tube is in the distal esophagus. This could be advanced 8 cm. Dictated by: Dictated on workstation # [id number]
[2022-07-07] MEDS ORDERED: CHLORASEPTIC SPRAY 177 ML LIQUID MC PRN (13:45)
--- NOTE | 2022-07-07 15:45 | Progress Note - Surgery ---
Subjective Date Seen by a Provider: Jul 07, 2022 Time Seen by a Provider: 12:52 Subjective/Events-last exam Having nausea and emesis. Abdomen more distended. Has been good about walking and using IS but this morning not due to how he feels. Wbc slightly up. Denies fever sweats chills shortness of breath or chest pain. Objective Exam Vital Signs Date Time Temp Pulse Resp B/P (MAP) Pulse Ox O2 Delivery O2 Flow Rate FiO2 07/07/22 11:44 36.8 106 18 138/75 (96) 93 Room Air 07/07/22 09:39 93 Room Air 07/07/22 07:04 37.1 87 20 166/84 (111) 93 Room Air 07/07/22 04:00 37.4 96 18 175/83 (113) 96 Room Air 07/07/22 00:00 37.4 82 20 183/85 (117) 97 Room Air 07/06/22 21:00 Room Air 07/06/22 19:02 37.5 95 18 174/88 (116) 93 Room Air 0.00 0.00 I & O 07/07/22 07:00 Intake Total 4220 ml Output Total 3000 ml Balance 1220 ml Capillary Refill : General Appearance: No Apparent Distress, WD/WN, Chronically ill HEENT: PERRL/EOMI, Normal ENT Inspection Neck: Normal Inspection, Non Tender Respiratory: Chest Non Tender, No Accessory Muscle Use, No Respiratory Distress Cardiovascular: Regular Rate, Rhythm, No JVD Peripheral Pulses: 2+ Radial Pulses (R), 2+ Radial Pulses (L) Gastrointestinal: distended, tenderness (incsional c/d/i no signs of infection) Extremity: Non Tender Neurologic/Psychiatric: Alert, Oriented x3 Skin: Normal Color, Warm/Dry Lymphatic: No Adenopathy Results Lab Laboratory Tests 07/07/22 06:16: White Blood Count 15.7H, Red Blood Count 5.18, Hemoglobin 15.6, Hematocrit 47, Mean Corpuscular Volume 90, Mean Corpuscular Hemoglobin 30, Mean Corpuscular Hemoglobin Concent 33, Red Cell Distribution Width 13.0, Platelet Count 246, Mean Platelet Volume 11.7, Immature Granulocyte % (Auto) 0, Neutrophils (%) (Auto) 79H, Lymphocytes (%) (Auto) 9L, Monocytes (%) (Auto) 11, Eosinophils (%) (Auto) 1, Basophils (%) (Auto) 0, Neutrophils # (Auto) 12.4H, Lymphocytes # (Auto) 1.4, Monocytes # (Auto) 1.7H, Eosinophils # (Auto) 0.1, Basophils # (Auto) 0.0, Immature Granulocyte # (Auto) 0.1, Neutrophils % (Manual) 72, Lymphocytes % (Manual) 8, Monocytes % (Manual) 14, Eosinophils % (Manual) 2, B asophils % (Manual) 0, Band Neutrophils 4, Blood Morphology Comment NORMAL, Sodium Level 138, Potassium Level 3.6, Chloride Level 101, Carbon Dioxide Level 25, Anion Gap 12, Blood Urea Nitrogen 5L, Creatinine 0.71, Estimat Glomerular F iltration Rate 106, BUN/Creatinine Ratio 7, Glucose Level 146H, Calcium Level 9.8, Corrected Calcium 9.8, Total Bilirubin 0.6, Aspartate Amino Transf (AST/SGOT) 11, Alanine Aminotransferase (ALT/SGPT) 17, Alkaline Phosphatase 58, Total Protein 7.9, Albumin 4.0 Microbiology 07/04/22 MRSA Screen - Final, Complete MRSA not isolated Assessment/Plan Assessment/Plan Assessment/Plan s/p lap hand assisted right colon resection postoperative ileus n/v pain control ambulate IS NG tube inserted and advanced- LIWS dvt prophylaxis npo await bowel function GERTRUDE DUDLEY DO Jul 07, 2022 15:45
[2022-07-08 03:28] VITALS: BP 106/61
[2022-07-08] MEDS: LACTATED RINGERS 1,000 ML IV PRN ×3 (03:53→21:59)
[2022-07-08] MEDS: ONDANSETRON 4 MG/2 ML (SDV) Z0FRAN IVP PRN (04:26)
[2022-07-08 06:16] LABS: BASOPHILS % (AUTO) 0 % (0-10); EOSINOPHILS % (AUTO) 0 % (0-10); HEMATOCRIT 45 % (40-54); LYMPHOCYTES # (AUTO) 0.9 10^3/uL (1.0-4.0); LYMPHOCYTES % (AUTO) 10 % (12-44); MEAN CORPUSCULAR HEMOGLOBIN 30 pg (25-34); MEAN CORPUSCULAR HGB CONC 34 g/dL (32-36); MEAN CORPUSCULAR VOLUME 90 fL (80-99); MEAN PLATELET VOLUME 11.5 fL (9.0-12.2); MONOCYTES # (AUTO) 1.7 10^3/uL (0.0-1.0); MONOCYTES % (AUTO) 18 % (0-12); NEUTROPHILS # (AUTO) 6.7 10^3/uL (1.8-7.8); NEUTROPHILS % (AUTO) 71 % (42-75); PLATELET COUNT 278 10^3/uL (130-400); WHITE BLOOD COUNT 9.4 10^3/uL (4.3-11.0)
[2022-07-08 06:32] LABS: ALBUMIN 3.7 GM/DL (3.2-4.5); BILIRUBIN,TOTAL 0.6 MG/DL (0.1-1.0); CALCIUM 9.5 MG/DL (8.5-10.1); CREATININE SERUM 1.27 MG/DL (0.60-1.30); POTASSIUM 3.3 MMOL/L (3.6-5.0); TOTAL PROTEIN 7.4 GM/DL (6.4-8.2)
[2022-07-08 08:00] VITALS: BP 152/68
[2022-07-08] MEDS: lisINopril 20 MG (PRINIVIL) TABLET PO SCH (08:13)
[2022-07-08] MEDS: ENOXAPARIN 40 MG/0.4 ML (LOVENOX) SYR SC SCH (08:13)
[2022-07-08] MEDS: NICOTINE 21 MG (NICODERM) PATCH TD SCH (08:13)
[2022-07-08] MEDS: amLODIPine 5 MG (NORVASC) TAB PO SCH (08:14)
[2022-07-08] MEDS: NICOTINE PATCH REMOVAL TP SCH (08:14)
--- NOTE | 2022-07-08 09:16 | Progress Note - Surgery ---
Subjective Date Seen by a Provider: Jul 08, 2022 Time Seen by a Provider: 09:16 Subjective/Events-last exam Passing flatus and small bm. Feeling better. Not having nausea or emesis today. Not wanting NG tube. Denies fever sweats chills shortness of breath or chest pain. Objective Exam Vital Signs Date Time Temp Pulse Resp B/P (MAP) Pulse Ox O2 Delivery O2 Flow Rate FiO2 07/08/22 08:00 36.4 88 19 152/68 (96) 92 Room Air 07/08/22 08:00 92 Room Air 0.00 07/08/22 03:28 36.0 85 16 106/61 (76) 92 Room Air 07/07/22 23:59 36.0 94 16 135/78 (97) 93 Room Air 07/07/22 19:55 Room Air 07/07/22 19:26 37.4 100 19 140/80 (100) 91 Room Air 07/07/22 16:00 37.0 100 20 136/71 (92) 92 Room Air 07/07/22 11:44 36.8 106 18 138/75 (96) 93 Room Air 07/07/22 09:39 93 Room Air I & O 07/08/22 07:00 Intake Total 2220 ml Output Total 2750 ml Balance -530 ml Capillary Refill : General Appearance: No Apparent Distress, WD/WN, Chronically ill HEENT: PERRL/EOMI, Normal ENT Inspection Neck: Normal Inspection, Non Tender Respiratory: Chest Non Tender, No Accessory Muscle Use, No Respiratory Distress Cardiovascular: Regular Rate, Rhythm, No JVD Peripheral Pulses: 2+ Radial Pulses (R), 2+ Radial Pulses (L) Gastrointestinal: distended (minimal), tenderness (incsional c/d/i no signs of infection) Extremity: Non Tender Neurologic/Psychiatric: Alert, Oriented x3 Skin: Normal Color, Warm/Dry Lymphatic: No Adenopathy Results Lab Laboratory Tests 07/08/22 06:00: White Blood Count 9.4, Red Blood Count 4.97, Hemoglobin 15.0, Hematocrit 45, Mean Corpuscular Volume 90, Mean Corpuscular Hemoglobin 30, Mean Corpuscular Hemoglobin Concent 34, Red Cell Distribution Width 13.1, Platelet Count 278, Mean Platelet Volume 11.5, Immature Granulocyte % (Auto) 0, Neutrophils (%) (Auto) 71, Lymphocytes (%) (Auto) 10L, Monocytes (%) (Auto) 18H, Eosinophils (%) (Auto) 0, Basophils (%) (Auto) 0, Neutrophils # (Auto) 6.7, Lymphocytes # (Auto) 0.9L, Monocytes # (Auto) 1.7H, Eosinophils # (Auto) 0.0, Basophils # (Auto) 0.0, Immature Granulocyte # (Auto) 0.0, Sodium Level 144, Potassium Level 3.3L, Chloride Level 96L, Carbon Dioxide Level 32, Anion Gap 16H, Blood Urea Nitrogen 22H, Creatinine 1.27, Estimat Glomerular Filtration Rate 65, BUN/Creatinine Ratio 17, Glucose Level 198H, Calcium Level 9.5, Corrected Calcium 9.7, Total Bilirubin 0.6, Aspartate Amino Transf (AST/SGOT) 8, Alanine Aminotransferase (ALT/SGPT) 9, Alkaline Phosphatase 48, Total Protein 7.4, Albumin 3.7 Microbiology 07/04/22 MRSA Screen - Final, Complete MRSA not isolated Assessment/Plan Assessment/Plan Assessment/Plan s/p lap hand assisted right colon resection postoperative ileus n/v pain control ambulate IS NG tube - dc start clears dvt prophylaxis GERTRUDE DUDLEY DO Jul 08, 2022 09:16
[2022-07-08] MEDS: NS IV 500 ML 500 ML IV SCH (09:58)
[2022-07-08] MEDS: PROMETHAZINE INJ 25 MG/ML (PHENERGAN) AMP IVP PRN (10:03)
[2022-07-08] MEDS: POTASSIUM CL 10MEQ/50ML IVPB 50 ML IV SCH ×4 (10:04→13:03)
[2022-07-08 12:17] VITALS: BP 148/69
[2022-07-08] MEDS: morphine INJ 10 MG/ML 1ML (SYR OR VIAL) IVP PRN (13:42)
--- NOTE | 2022-07-08 14:37 | Progress Note ---
Subjective Subjective/Events-last exam Pt seen at 1100. Had small BM today. Feeling poorly, nauseated, abdominal pain. NG was clamped for meds, and he felt badly after, nursing reconnected suction and had over 400 cc out, so NG left in place. Objective Exam Last Set of Vital Signs Vital Signs Date Time Temp Pulse Resp B/P (MAP) Pulse Ox O2 Delivery O2 Flow Rate FiO2 07/08/22 12:17 36.4 95 18 148/69 (95) 92 Room Air 07/08/22 08:00 0.00 07/04/22 19:05 21 Capillary Refill : I&O Intake and Output 07/08/22 00:00 Intake Total 2420 ml Output Total 1950 ml Balance 470 ml Intake Oral 1420 ml IV Total 1000 ml Output Urine Total 500 ml Gastric Drainage Total 1450 ml # Voids 6 General: Alert, No Acute Distress Lungs: Clear to Auscultation, Normal Air Movement Heart: Regular Rate, No Murmurs Abdomen: Other (hypoactive bowel sounds, distended, incisions clean dry and intact) Extremities: No Edema Psych/Mental Status: Mood NL Results/Procedures Lab Laboratory Tests 07/08/22 06:00: White Blood Count 9.4, Red Blood Count 4.97, Hemoglobin 15.0, Hematocrit 45, Mean Corpuscular Volume 90, Mean Corpuscular Hemoglobin 30, Mean Corpuscular Hemoglobin Concent 34, Red Cell Distribution Width 13.1, Platelet Count 278, Mean Platelet Volume 11.5, Immature Granulocyte % (Auto) 0, Neutrophils (%) (Auto) 71, Lymphocytes (%) (Auto) 10L, Monocytes (%) (Auto) 18H, Eosinophils (%) (Auto) 0, Basophils (%) (Auto) 0, Neutrophils # (Auto) 6.7, Lymphocytes # (Auto) 0.9L, Monocytes # (Auto) 1.7H, Eosinophils # (Auto) 0.0, Basophils # (Auto) 0.0, Immature Granulocyte # (Auto) 0.0, Sodium Level 144, Potassium Level 3.3L, Chloride Level 96L, Carbon Dioxide Level 32, Anion Gap 16H, Blood Urea Nitrogen 22H, Creatinine 1.27, Estimat Glomerular Filtration Rate 65, BUN/Creatinine Ratio 17, Glucose Level 198H, Calcium Level 9.5, Corrected Calcium 9.7, Total Bilirubin 0.6, Aspartate Amino Transf (AST/SGOT) 8, Alanine Aminotransferase (ALT/SGPT) 9, Alkaline Phosphatase 48, Total Protein 7.4, Albumin 3.7 Microbiology 07/04/22 MRSA Screen - Final, Complete MRSA not isolated Assessment/Plan Assessment/Plan (1) Mass of colon Status: Acute Assessment & Plan: s/p right colon resection, Surgery managing. (2) Ileus following gastrointestinal surgery Status: Acute Assessment & Plan: Still with significant output from NG, appreciate surgery management (3) Hypertension Status: Chronic Assessment & Plan: Started on amlodipine, was on lisinopril at home, will resume. Qualifiers: Qualified Codes: I10 - Essential (primary) hypertension (4) Diabetes mellitus, type 2 Status: Chronic Assessment & Plan: Hold home metformin, sliding scale insulin as needed. MIA CRISOSTOMO MD Jul 08, 2022 14:37
[2022-07-08 15:40] VITALS: BP 137/83
[2022-07-08] MEDS: inSUlin ASPART (NovoLOG) 1 UNIT/0.01 ML (CHARGE PER UNIT) SC SCH ×2 (16:11→20:30)
[2022-07-08 19:55] VITALS: BP 139/67
[2022-07-09] VITALS (7 sets, daily range): BP systolic 139–188; BP diastolic 72–91
[2022-07-09] MEDS: NS IV 500 ML 500 ML IV SCH ×2 (01:12→08:14)
[2022-07-09] MEDS: morphine INJ 10 MG/ML 1ML (SYR OR VIAL) IVP PRN (02:53)
[2022-07-09] MEDS: LACTATED RINGERS 1,000 ML IV PRN (05:00)
[2022-07-09] MEDS: inSUlin ASPART (NovoLOG) 1 UNIT/0.01 ML (CHARGE PER UNIT) SC SCH ×5 (05:01→20:42)
[2022-07-09 05:51] LABS: BASOPHILS % (AUTO) 0 % (0-10); EOSINOPHILS % (AUTO) 0 % (0-10); HEMATOCRIT 43 % (40-54); HEMOGLOBIN 14.5 g/dL (13.3-17.7); LYMPHOCYTES # (AUTO) 1.2 10^3/uL (1.0-4.0); LYMPHOCYTES % (AUTO) 11 % (12-44); MEAN CORPUSCULAR HEMOGLOBIN 30 pg (25-34); MEAN CORPUSCULAR HGB CONC 34 g/dL (32-36); MEAN CORPUSCULAR VOLUME 91 fL (80-99); MEAN PLATELET VOLUME 11.6 fL (9.0-12.2); MONOCYTES # (AUTO) 1.4 10^3/uL (0.0-1.0); MONOCYTES % (AUTO) 12 % (0-12); NEUTROPHILS # (AUTO) 8.9 10^3/uL (1.8-7.8); NEUTROPHILS % (AUTO) 77 % (42-75); PLATELET COUNT 328 10^3/uL (130-400); WHITE BLOOD COUNT 11.6 10^3/uL (4.3-11.0)
[2022-07-09 06:10] LABS: ALBUMIN 3.7 GM/DL (3.2-4.5); BILIRUBIN,TOTAL 0.4 MG/DL (0.1-1.0); CALCIUM 9.4 MG/DL (8.5-10.1); CREATININE SERUM 0.94 MG/DL (0.60-1.30); POTASSIUM 2.7 MMOL/L (3.6-5.0); TOTAL PROTEIN 7.6 GM/DL (6.4-8.2)
[2022-07-09] MEDS: D5 1/2 NS W/KCL 40 MEQ/L 1,000 ML IV SCH ×3 (07:14→17:29)
[2022-07-09] MEDS: POTASSIUM CL 10MEQ/50ML IVPB 50 ML IV SCH ×4 (07:15→10:25)
[2022-07-09] MEDS: NICOTINE 21 MG (NICODERM) PATCH TD SCH (08:14)
[2022-07-09] MEDS: NICOTINE PATCH REMOVAL TP SCH (08:18)
[2022-07-09] MEDS ORDERED: lisINopril 20 MG (PRINIVIL) TABLET PO SCH (09:00)
[2022-07-09] MEDS: amLODIPine 5 MG (NORVASC) TAB PO SCH (09:58)
[2022-07-09] MEDS: lisINopril 20 MG (PRINIVIL) TABLET PO SCH (09:58)
[2022-07-09] MEDS: ENOXAPARIN 40 MG/0.4 ML (LOVENOX) SYR SC SCH ×2 (09:59→10:03)
[2022-07-09] MEDS: cloNIDine 0.1 MG (CATAPRES) TAB PO PRN ×2 (10:00→17:28)
--- NOTE | 2022-07-09 12:57 | Progress Note ---
Subjective Subjective/Events-last exam Reports feeling better, having bowel movements. Still having a lot of output in NG. Objective Exam Last Set of Vital Signs Vital Signs Date Time Temp Pulse Resp B/P (MAP) Pulse Ox O2 Delivery O2 Flow Rate FiO2 07/09/22 11:22 36.3 83 18 188/91 (123) 98 Nasal Cannula 2.00 07/04/22 19:05 21 Capillary Refill : I&O Intake and Output 07/09/22 00:00 Intake Total 2000 ml Output Total 3725 ml Balance -1725 ml Intake Oral 0 ml IV Total 2000 ml Output Urine Total 150 ml Gastric Drainage Total 3300 ml Emesis 275 ml # Voids 4 # Bowel Movements 2 General: Alert, No Acute Distress Lungs: Clear to Auscultation, Normal Air Movement Heart: Regular Rate, No Murmurs Abdomen: Soft, No Tenderness, Other (hypoactive bowel sounds) Neuro: Normal Speech Psych/Mental Status: Mood NL Results/Procedures Lab Laboratory Tests 07/08/22 15:38: Glucometer 152H 07/08/22 19:59: Glucometer 159H 07/09/22 04:49: Glucometer 156H 07/09/22 05:14: White Blood Count 11.6H, Red Blood Count 4.77, Hemoglobin 14.5, Hematocrit 43, Mean Corpuscular Volume 91, Mean Corpuscular Hemoglobin 30, Mean Corpuscular Hemoglobin Concent 34, Red Cell Distribution Width 13.1, Platelet Count 328, M zhou Platelet Volume 11.6, Immature Granulocyte % (Auto) 0, Neutrophils (%) (Auto) 77H, Lymphocytes (%) (Auto) 11L, Monocytes (%) (Auto) 12, Eosinophils (%) (Auto) 0, Basophils (%) (Auto) 0, Neutrophils # (Auto) 8.9H, Lymphocytes # (Auto) 1.2, Monocytes # (Auto) 1.4H, Eosinophils # (Auto) 0.0, Basophils # (Auto) 0.0, Immature Granulocyte # (Auto) 0.0, Sodium Level 150H, Potassium Level 2.7L, Chloride Level 95L, Carbon Dioxide Level 39H, Anion Gap 16H, Blood Urea Nitrogen 23H, Creatinine 0.94, Estimat Glomerular Filtration Rate 94, BUN/Creatinine Ratio 24, Glucose Level 176H, Calcium Level 9.4, Corrected Calcium 9.6, Total Bilirubin 0.4, Aspartate Amino Transf (AST/SGOT) 10, Alanine Aminotransferase (ALT/SGPT) 10, Alkaline Phosphatase 54, Total Protein 7.6, Albumin 3.7 07/09/22 10:05: Glucometer 149H Microbiology 07/04/22 MRSA Screen - Final, Complete MRSA not isolated Assessment/Plan Assessment/Plan (1) Mass of colon Status: Acute Assessment & Plan: s/p right colon resection, Surgery managing. (2) Ileus following gastrointestinal surgery Status: Acute Assessment & Plan: Still with significant output from NG, appreciate surgery management (3) Hypertension Status: Chronic Assessment & Plan: Started on amlodipine, was on lisinopril at home which has been resumed. Qualifiers: Qualified Codes: I10 - Essential (primary) hypertension (4) Diabetes mellitus, type 2 Status: Chronic Assessment & Plan: Hold home metformin, sliding scale insulin as needed. (5) Hypernatremia Status: Acute Assessment & Plan: Will change IVF to D51/2NS, monitor glucose closely (6) Hypokalemia Status: Acute Assessment & Plan: Replace and monitor. MIA CRISOSTOMO MD Jul 09, 2022 12:57
--- NOTE | 2022-07-09 17:53 | Progress Note - Surgery ---
Subjective Date Seen by a Provider: Jul 09, 2022 Time Seen by a Provider: 14:19 Subjective/Events-last exam Patient feeling better. Passing flatus and bm. Currently npo and ng tube in place. No new complaints. Denies n/v fever sweats chills shortness of breath or chest pain. Objective Exam Vital Signs Date Time Temp Pulse Resp B/P (MAP) Pulse Ox O2 Delivery O2 Flow Rate FiO2 07/09/22 17:27 Room Air 0.00 07/09/22 15:43 37.2 82 20 166/73 (104) 93 Room Air 07/09/22 11:22 36.3 83 18 188/91 (123) 98 Nasal Cannula 2.00 07/09/22 07:36 37.2 85 20 184/83 (116) 93 Nasal Cannula 2.00 07/09/22 03:00 36.7 86 20 155/74 (101) 93 Nasal Cannula 2.00 07/09/22 00:30 36.8 88 18 150/73 (98) 95 Nasal Cannula 2.00 07/08/22 20:31 Room Air 07/08/22 19:55 36.1 97 18 139/67 (91) 88 Room Air I & O 07/09/22 07:00 Intake Total 2000 ml Output Total 5075 ml Balance -3075 ml Capillary Refill : General Appearance: No Apparent Distress, WD/WN, Chronically ill HEENT: PERRL/EOMI, Normal ENT Inspection Neck: Normal Inspection, Non Tender Respiratory: Chest Non Tender, No Accessory Muscle Use, No Respiratory Distress Cardiovascular: Regular Rate, Rhythm, No JVD Peripheral Pulses: 2+ Radial Pulses (R), 2+ Radial Pulses (L) Gastrointestinal: distended (minimal), tenderness (incsional c/d/i no signs of infection) Extremity: Non Tender Neurologic/Psychiatric: Alert, Oriented x3 Skin: Normal Color, Warm/Dry Lymphatic: No Adenopathy Results Lab Laboratory Tests 07/08/22 19:59: Glucometer 159H 07/09/22 04:49: Glucometer 156H 07/09/22 05:14: White Blood Count 11.6H, Red Blood Count 4.77, Hemoglobin 14.5, Hematocrit 43, Mean Corpuscular Volume 91, Mean Corpuscular Hemoglobin 30, Mean Corpuscular Hemoglobin Concent 34, Red Cell Distribution Width 13.1, Platelet Count 328, Mean Platelet Volume 11.6, Immature Granulocyte % (Auto) 0, Neutrophils (%) (Auto) 77H, Lymphocytes (%) (Auto) 11L, Monocytes (%) (Auto) 12, Eosinophils (%) (Auto) 0, Basophils (%) (Auto) 0, Neutrophils # (Auto) 8.9H, Lymphocytes # (Auto) 1.2, Monocytes # (Auto) 1.4H, Eosinophils # (Auto) 0.0, Basophils # (Auto) 0.0, Immature Granulocyte # (Auto) 0.0, Sodium Level 150H, Potassium Level 2.7L, Chloride Level 95L, Carbon Dioxide Level 39H, Anion Gap 16H, Blood Urea Nitrogen 23H, Creatinine 0.94, Estimat Glomerular Filtration Rate 94, BUN/Creatinine Ratio 24, Glucose Level 176H, Calcium Level 9.4, Corrected Calcium 9.6, Total Bilirubin 0.4, Aspartate Amino Transf (AST/SGOT) 10, Alanine Aminotransferase (ALT/SGPT) 10, Alkaline Phosphatase 54, Total Protein 7.6, Albumin 3.7 07/09/22 10:05: Glucometer 149H 07/09/22 15:46: Glucometer 135H Microbiology 07/04/22 MRSA Screen - Final, Complete MRSA not isolated Assessment/Plan Assessment/Plan Assessment/Plan s/p lap hand assisted right colon resection postoperative ileus n/v pain control ambulate IS NG tube - dc start clears dvt prophylaxis GERTRUDE DUDLEY DO Jul 09, 2022 17:53
[2022-07-10] MEDS: D5 1/2 NS W/KCL 40 MEQ/L 1,000 ML IV SCH (01:36)
[2022-07-10 04:37] VITALS: BP 152/73
[2022-07-10 05:35] LABS: BASOPHILS % (AUTO) 0 % (0-10); EOSINOPHILS # (AUTO) 0.1 10^3/uL (0.0-0.3); EOSINOPHILS % (AUTO) 1 % (0-10); HEMATOCRIT 38 % (40-54); HEMOGLOBIN 12.8 g/dL (13.3-17.7); LYMPHOCYTES # (AUTO) 0.9 10^3/uL (1.0-4.0); LYMPHOCYTES % (AUTO) 9 % (12-44); MEAN CORPUSCULAR HEMOGLOBIN 30 pg (25-34); MEAN CORPUSCULAR HGB CONC 34 g/dL (32-36); MEAN CORPUSCULAR VOLUME 90 fL (80-99); MONOCYTES # (AUTO) 1.3 10^3/uL (0.0-1.0); MONOCYTES % (AUTO) 13 % (0-12); NEUTROPHILS # (AUTO) 7.4 10^3/uL (1.8-7.8); NEUTROPHILS % (AUTO) 77 % (42-75); PLATELET COUNT 299 10^3/uL (130-400); WHITE BLOOD COUNT 9.7 10^3/uL (4.3-11.0)
[2022-07-10 05:58] LABS: ALBUMIN 3.4 GM/DL (3.2-4.5); BILIRUBIN,TOTAL 0.3 MG/DL (0.1-1.0); CALCIUM 8.7 MG/DL (8.5-10.1); CREATININE SERUM 0.73 MG/DL (0.60-1.30); POTASSIUM 2.9 MMOL/L (3.6-5.0); TOTAL PROTEIN 6.7 GM/DL (6.4-8.2)
[2022-07-10] MEDS: inSUlin ASPART (NovoLOG) 1 UNIT/0.01 ML (CHARGE PER UNIT) SC SCH ×4 (06:00→21:00)
[2022-07-10 07:35] VITALS: BP 139/65
[2022-07-10] MEDS ORDERED: KCL 20 MEQ TAB (K-DUR) PO NR (08:00)
[2022-07-10] MEDS: lisINopril 20 MG (PRINIVIL) TABLET PO SCH (08:32)
[2022-07-10] MEDS: POTASSIUM CL 10MEQ/50ML IVPB 50 ML IV SCH ×4 (08:32→12:14)
[2022-07-10] MEDS: NS IV 500 ML 500 ML IV SCH (08:32)
[2022-07-10] MEDS: amLODIPine 5 MG (NORVASC) TAB PO SCH (08:32)
[2022-07-10] MEDS: NICOTINE 21 MG (NICODERM) PATCH TD SCH (08:33)
[2022-07-10] MEDS: ENOXAPARIN 40 MG/0.4 ML (LOVENOX) SYR SC SCH (08:38)
[2022-07-10] MEDS: NICOTINE PATCH REMOVAL TP SCH (08:40)
[2022-07-10 11:04] VITALS: BP 179/71
--- NOTE | 2022-07-10 11:44 | Progress Note - Surgery ---
Subjective Date Seen by a Provider: Jul 10, 2022 Time Seen by a Provider: 11:41 Subjective/Events-last exam Feeling better today. Having bowel function. On clears . Pain controlled. Using IS Denies n/v fever sweats chills shortness of breath or chest pain. Objective Exam Vital Signs Date Time Temp Pulse Resp B/P (MAP) Pulse Ox O2 Delivery O2 Flow Rate FiO2 07/10/22 08:30 Room Air 07/10/22 07:35 36.9 68 20 139/65 (89) 94 Room Air 07/10/22 04:37 37.1 79 20 152/73 (99) 94 Room Air 07/09/22 23:24 36.9 74 20 139/74 (95) 93 Room Air 07/09/22 21:00 Room Air 07/09/22 19:18 37.1 74 20 148/72 (97) 95 Room Air 07/09/22 17:27 Room Air 0.00 07/09/22 15:43 37.2 82 20 166/73 (104) 93 Room Air I & O 07/10/22 07:00 Intake Total 2710 ml Output Total 1000 ml Balance 1710 ml Capillary Refill : General Appearance: No Apparent Distress, WD/WN, Chronically ill HEENT: PERRL/EOMI, Normal ENT Inspection Neck: Normal Inspection, Non Tender Respiratory: Chest Non Tender, No Accessory Muscle Use, No Respiratory Distress Cardiovascular: Regular Rate, Rhythm, No JVD Peripheral Pulses: 2+ Radial Pulses (R), 2+ Radial Pulses (L) Gastrointestinal: distended (slight), tenderness (incsional c/d/i no signs of infection) Extremity: Non Tender Neurologic/Psychiatric: Alert, Oriented x3 Skin: Normal Color, Warm/Dry Lymphatic: No Adenopathy Results Lab Laboratory Tests 07/09/22 15:46: Glucometer 135H 07/10/22 05:17: White Blood Count 9.7, Red Blood Count 4.25L, Hemoglobin 12.8L, Hematocrit 38L, Mean Corpuscular Volume 90, Mean Corpuscular Hemoglobin 30, Mean Corpuscular Hemoglobin Concent 34, Red Cell Distribution Width 12.9, Platelet Count 299, Mean Platelet Volume 11.0, Immature Granulocyte % (Auto) 0, Neutrophils (%) (Auto) 77H, Lymphocytes (%) (Auto) 9L, Monocytes (%) (Auto) 13H, Eosinophils (%) (Auto) 1, Basophils (%) (Auto) 0, Neutrophils # (Auto) 7.4, Lymphocytes # (Auto) 0.9L, Monocytes # (Auto) 1.3H, Eosinophils # (Auto) 0.1, Basophils # (Auto) 0.0, Immature Granulocyte # (Auto) 0.0, Sodium Level 138, Potassium Level 2.9L, Chloride Level 94L, Carbon Dioxide Level 32, Anion Gap 12, Blood Urea Nitrogen 12, Creatinine 0.73, Estimat Glomerular Filtration Rate 105, BUN/Creatinine Ratio 16, Glucose Level 160H, Calcium Level 8.7, Corrected Calcium 9.2, Total Bilirubin 0.3, Aspartate Amino Transf (AST/SGOT) 16, Alanine Aminotransferase (ALT/SGPT) 15, Alkaline Phosphatase 48, Total Protein 6.7, Albumin 3.4 07/10/22 11:08: Glucometer 94 Microbiology 07/04/22 MRSA Screen - Final, Complete MRSA not isolated Assessment/Plan Assessment/Plan Assessment/Plan s/p lap hand assisted right colon resection postoperative ileus n/v hypokalemia-replace per protocol pain control ambulate IS clear advance diet dvt prophylaxis GERTRUDE DUDLEY DO Jul 10, 2022 11:44
--- NOTE | 2022-07-10 11:51 | Progress Note ---
Subjective Subjective/Events-last exam Denies abdominal pain or nausea/vomiting, able to tolerate liquids this morning. Complaining of severe diarrhea now. Objective Exam Last Set of Vital Signs Vital Signs Date Time Temp Pulse Resp B/P (MAP) Pulse Ox O2 Delivery O2 Flow Rate FiO2 07/10/22 11:04 37.1 76 20 179/71 (107) 92 Room Air 07/09/22 17:27 0.00 07/04/22 19:05 21 Capillary Refill : I&O Intake and Output 07/10/22 00:00 Intake Total 2860 ml Output Total 3150 ml Balance -290 ml Intake Oral 1560 ml IV Total 1300 ml Output Urine Total 450 ml Gastric Drainage Total 2700 ml # Voids 9 # Bowel Movements 4 General: Alert, No Acute Distress Lungs: Clear to Auscultation, Normal Air Movement Heart: Regular Rate, No Murmurs Abdomen: Normal Bowel Sounds, Soft, Other (minimal ttp, dressing in place to midline with small serosanguinous drainage) Extremities: No Edema Psych/Mental Status: Other (appears frustrated) Results/Procedures Lab Laboratory Tests 07/09/22 15:46: Glucometer 135H 07/10/22 05:17: White Blood Count 9.7, Red Blood Count 4.25L, Hemoglobin 12.8L, Hematocrit 38L, Mean Corpuscular Volume 90, Mean Corpuscular Hemoglobin 30, Mean Corpuscular Hemoglobin Concent 34, Red Cell Distribution Width 12.9, Platelet Count 299, Mean Platelet Volume 11.0, Immature Granulocyte % (Auto) 0, Neutrophils (%) (Auto) 77H, Lymphocytes (%) (Auto) 9L, Monocytes (%) (Auto) 13H, Eosinophils (%) (Auto) 1, Basophils (%) (Auto) 0, Neutrophils # (Auto) 7.4, Lymphocytes # (Auto) 0.9L, Monocytes # (Auto) 1.3H, Eosinophils # (Auto) 0.1, Basophils # (Auto) 0.0, Immature Granulocyte # (Auto) 0.0, Sodium Level 138, Potassium Level 2.9L, Chloride Level 94L, Carbon Dioxide Level 32, Anion Gap 12, Blood Urea Nitrogen 12, Creatinine 0.73, Estimat Glomerular Filtration Rate 105, BUN/Creatinine Ratio 16, Glucose Level 160H, Calcium Level 8.7, Corrected Calcium 9.2, Total Bilirubin 0.3, Aspartate Amino Transf (AST/SGOT) 16, Alanine Aminotransferase (ALT/SGPT) 15, Alkaline Phosphatase 48, Total Protein 6.7, Albumin 3.4 07/10/22 11:08: Glucometer 94 Microbiology 07/04/22 MRSA Screen - Final, Complete MRSA not isolated Assessment/Plan Assessment/Plan (1) Mass of colon Status: Acute Assessment & Plan: s/p right colon resection, Surgery managing. (2) Ileus following gastrointestinal surgery Status: Acute Assessment & Plan: 1 Still with significant output from NG, appreciate surgery management 07/10 NG removed yesterday afternoon, tolerating well (3) Hypertension Status: Chronic Assessment & Plan: Started on amlodipine, was on lisinopril at home which has been resumed. Qualifiers: Qualified Codes: I10 - Essential (primary) hypertension (4) Diabetes mellitus, type 2 Status: Chronic Assessment & Plan: Hold home metformin, sliding scale insulin as needed. (5) Hypernatremia Status: Resolved Assessment & Plan: Will change IVF to D51/2NS, monitor glucose closely 07/10 resolved, tolerating liquids, will d/c D51/2NS (6) Hypokalemia Status: Acute Assessment & Plan: Replace and monitor. MIA CRISOSTOMO MD Jul 10, 2022 11:51
[2022-07-10 15:12] VITALS: BP 152/67
[2022-07-10 20:05] VITALS: BP 194/88
[2022-07-10 23:52] VITALS: BP 176/72
[2022-07-11] MEDS: NS IV 500 ML 500 ML IV SCH (03:10)
[2022-07-11 04:00] VITALS: BP 177/74
[2022-07-11 05:32] LABS: BASOPHILS % (AUTO) 0 % (0-10); EOSINOPHILS # (AUTO) 0.1 10^3/uL (0.0-0.3); EOSINOPHILS % (AUTO) 1 % (0-10); HEMATOCRIT 40 % (40-54); HEMOGLOBIN 13.3 g/dL (13.3-17.7); LYMPHOCYTES # (AUTO) 1.2 10^3/uL (1.0-4.0); LYMPHOCYTES % (AUTO) 14 % (12-44); MEAN CORPUSCULAR HEMOGLOBIN 30 pg (25-34); MEAN CORPUSCULAR HGB CONC 33 g/dL (32-36); MEAN CORPUSCULAR VOLUME 90 fL (80-99); MEAN PLATELET VOLUME 10.8 fL (9.0-12.2); MONOCYTES # (AUTO) 1.3 10^3/uL (0.0-1.0); MONOCYTES % (AUTO) 15 % (0-12); NEUTROPHILS # (AUTO) 6.1 10^3/uL (1.8-7.8); NEUTROPHILS % (AUTO) 70 % (42-75); PLATELET COUNT 293 10^3/uL (130-400); WHITE BLOOD COUNT 8.7 10^3/uL (4.3-11.0)
[2022-07-11 05:53] LABS: ALBUMIN 3.4 GM/DL (3.2-4.5); BILIRUBIN,TOTAL 0.3 MG/DL (0.1-1.0); CALCIUM 8.5 MG/DL (8.5-10.1); CREATININE SERUM 0.78 MG/DL (0.60-1.30); POTASSIUM 3.1 MMOL/L (3.6-5.0); TOTAL PROTEIN 6.7 GM/DL (6.4-8.2)
[2022-07-11] MEDS: inSUlin ASPART (NovoLOG) 1 UNIT/0.01 ML (CHARGE PER UNIT) SC SCH ×3 (05:59→17:02)
--- NOTE | 2022-07-11 07:34 | Progress Note - Surgery ---
MARVIN CONTRERAS 07/11/22 0734: Subjective Date Seen by a Provider: Jul 11, 2022 Time Seen by a Provider: 07:29 Subjective/Events-last exam Pt feeling much better, and currently pain free. He tolerated soft diet. Notes he had a bowel movement and strained too hard, with subsequent sanguineous drainage from incision site. A new dressing was applied to the site and he has not had any significant drainage since. Denies N/V/D, chest pain, sob, fever, or night sweats. States he is ready to go home. Review of Systems General: No Chills, No Night Sweats HEENT: No Head Aches Pulmonary: No Dyspnea, No Cough Cardiovascular: No: Chest Pain Gastrointestinal: No: Nausea, Vomiting, Abdominal Pain, Diarrhea, Constipation Genitourinary: No Dysuria, No Frequency Musculoskeletal: No: leg pain Neurological: No: Weakness, Numbness Objective Exam Vital Signs Date Time Temp Pulse Resp B/P (MAP) Pulse Ox O2 Delivery O2 Flow Rate FiO2 07/11/22 04:00 36.6 75 20 177/74 (108) 95 Room Air 07/10/22 23:52 37.1 69 20 176/72 (106) 95 Room Air 07/10/22 21:00 Room Air 07/10/22 20:05 37.6 80 16 194/88 (123) 92 Room Air 07/10/22 15:12 37.5 75 18 152/67 (95) 95 Room Air 07/10/22 11:04 37.1 76 20 179/71 (107) 92 Room Air 07/10/22 08:30 Room Air 07/10/22 07:35 36.9 68 20 139/65 (89) 94 Room Air I & O 07/11/22 07:00 Intake Total 3290 ml Balance 3290 ml Capillary Refill : General Appearance: No Apparent Distress, WD/WN HEENT: PERRL/EOMI, Normal ENT Inspection Neck: Normal Inspection, Non Tender Respiratory: Chest Non Tender, No Accessory Muscle Use, No Respiratory Distress Cardiovascular: Regular Rate, Rhythm, No JVD, No Murmur, Normal Peripheral Pulses Peripheral Pulses: 2+ Radial Pulses (R), 2+ Radial Pulses (L) Gastrointestinal: normal bowel sounds, distended (slight); No guarding, No rebound; tenderness (incsional c/d/i no signs of infection) Extremity: Non Tender, No Calf Tenderness, No Pedal Edema Neurologic/Psychiatric: Alert, Oriented x3 Skin: Normal Color, Warm/Dry Lymphatic: No Adenopathy Results Lab Laboratory Tests 07/10/22 11:08: Glucometer 94 07/10/22 15:19: Glucometer 92 07/10/22 20:42: Glucometer 135H 07/11/22 05:15: White Blood Count 8.7, Red Blood Count 4.46, Hemoglobin 13.3, Hematocrit 40, Mean Corpuscular Volume 90, Mean Corpuscular Hemoglobin 30, Mean Corpuscular Hemoglobin Concent 33, Red Cell Distribution Width 12.7, Platelet Count 293, Mean Platelet Volume 10.8, Immature Granulocyte % (Auto) 1, Neutrophils (%) (Auto) 70, Lymphocytes (%) (Auto) 14, Monocytes (%) (Auto) 15H, Eosinophils (%) (Auto) 1, Basophils (%) (Auto) 0, Neutrophils # (Auto) 6.1, Lymphocytes # (Auto) 1.2, Monocytes # (Auto) 1.3H, Eosinophils # (Auto) 0.1, Basophils # (Auto) 0.0, Immature Granulocyte # (Auto) 0.1, Sodium Level 138, Potassium Level 3.1L, Chloride Level 100, Carbon Dioxide Level 28, Anion Gap 10, Blood Urea Nitrogen 8, Creatinine 0.78, Estimat Glomerular Filtration Rate 103, BUN/Creatinine Ratio 10, Glucose Level 110H, Calcium Level 8.5, Corrected Calcium 9.0, Total Bilirubin 0.3, Aspartate Amino Transf (AST/SGOT) 22, Alanine Aminotransferase (ALT/SGPT) 19, Alkaline Phosphatase 48, Total Protein 6.7, Albumin 3.4 07/11/22 05:28: Glucometer 103 Microbiology 07/04/22 MRSA Screen - Final, Complete MRSA not isolated Assessment/Plan Assessment/Plan Assessment/Plan s/p lap hand assisted right colon resection postoperative ileus n/v hypokalemia- improving Pt tolerating diet, pain free, and having bowel movements Plan for d/c today F/u outpatient GERTRUDE BUSH DO 07/11/22 4959: Subjective Subjective/Events-last exam Tolerating diet. No pain. +bowel function. Wanting to go home. Slight serous drainage. Objective Exam General Appearance: No Apparent Distress, WD/WN, Anxious HEENT: PERRL/EOMI, Normal ENT Inspection Neck: Normal Inspection, Non Tender Respiratory: Chest Non Tender, No Accessory Muscle Use, No Respiratory Distress Cardiovascular: Regular Rate, Rhythm, No JVD Gastrointestinal: soft, tenderness (incsional c/d/i no signs of infection) Extremity: Non Tender, No Calf Tenderness Neurologic/Psychiatric: Alert, Oriented x3 Skin: Normal Color, Warm/Dry Lymphatic: No Adenopathy Assessment/Plan Assessment/Plan Assessment/Plan s/p lap hand assisted right colon resection postoperative ileus n/v hypokalemia- improving Pt tolerating diet, pain free, and having bowel movements Plan for d/c today F/u outpatient Supervisory-Addendum Brief Verification & Attestation Participated in pt care: history, MDM, physical Personally performed: exam, history, MDM, supervision of care Care discussed with: Medical Student Procedures: n/a Results interpretation: Verified all documentation Verification and Attestation of Medical Student E/M Service A medical student performed and documented this service in my presence. I reviewed and verified all information documented by the medical student and made modifications to such information, when appropriate. I personally performed the physical exam and medical decision making. Gertrude Bush, Jul 11, 2022,17:17 MARVIN CONTRERAS Jul 11, 2022 07:34 GERTRUDE BUSH DO Jul 11, 2022 17:17
[2022-07-11] MEDS ORDERED: KCL 20 MEQ TAB (K-DUR) PO ONE (07:45)
[2022-07-11 07:47] VITALS: BP 208/94
[2022-07-11] MEDS ORDERED: amLODIPine 10 MG (NORVASC) TAB PO SCH (09:00)
[2022-07-11] MEDS: POTASSIUM CL 10MEQ/50ML IVPB 50 ML IV SCH ×2 (09:16→09:52)
[2022-07-11] MEDS: ENOXAPARIN 40 MG/0.4 ML (LOVENOX) SYR SC SCH (09:16)
[2022-07-11] MEDS: lisINopril 20 MG (PRINIVIL) TABLET PO SCH (09:17)
[2022-07-11] MEDS: NICOTINE 21 MG (NICODERM) PATCH TD SCH (09:17)
[2022-07-11] MEDS: NICOTINE PATCH REMOVAL TP SCH (09:17)
[2022-07-11] MEDS: cloNIDine 0.1 MG (CATAPRES) TAB PO PRN (09:46)
[2022-07-11] MEDS ORDERED: KCL 20 MEQ TAB (K-DUR) PO SCH (10:30)
[2022-07-11 11:25] VITALS: BP 190/86
[2022-07-11 15:47] VITALS: BP 163/77
[2022-07-11] MEDS ORDERED: ACHD5005 PO (17:14)
--- NOTE | 2022-07-11 17:16 | Discharge Inst-Simple/Standard ---
Discharge Inst-Standard Discharge Medications New, Converted or Re-Newed RX: Transmitted to Pharmacy Patient Instructions/Follow Up Plan of Care/Instructions/FU: 2 weeks Rachelle Activity as Tolerated: No Discharge Diet: Regular Diet Other Inst to Patient Follow up Appt: Make appointment for 2 week. Instructions: No lifting greater than 10 pounds. No strenuous activity. May shower in 24 hours, no tub bath or soaking. Use incentive spirometer at home as directed. No Smoking Skin/Wound Care: Keep area clean and dry. Change dressing daily and as needed. If no drainage can leave open to air. Symptoms to Report: Appetite Changes, Extremity Discoloration, Numbness/Tingling, Swelling Increased, Bleeding Excessive, Eyesight Changes, Pain Increased, Urine Color Change, Constipation(Persistent), Fever over 101 degree F, Pain/Pressure in chest, Urinating Difficulty, Cough Up/Vomit Blood, Heart Beat Irreg/Pounding, Pain/Pressure in jaw, Vaginal Bleeding Increase, Cramps in feet or legs, Lightheadedness, Pain/Pressure in shoulder, Diarrhea(Persistent), Memory Changes Suddenly, Questions/Concerns, Weight gain consecutive days, Dizziness/Fainting, Nausea/Vomiting, Shortness of Breath, Weight gain over 2 pounds If questions or concerns contact your physician Or seek help at emergency department. GERTRUDE DUDLEY DO Jul 11, 2022 17:15
[2022-07-11 18:34] VITALS: BP 163/77
[2022-07-12] MEDS ORDERED: KCL 20 MEQ TAB (K-DUR) PO SCH (06:00)
--- NOTE | 2022-07-16 14:32 | Physician Query Clarification ---
PQ-Link Path Diagnosis Admission/Discharge Admission Date: Jul 04, 2022 at 10:08 Discharge Date: Jul 11, 2022 at 18:15 Dr. Bush, The medical record reflects the following: Rt. 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 Please document a response in Progress Notes or Discharge Summary. 1. Agree with pathological diagnosis of tubulovillous adenoma. 2. No - Do not agree with pathology findings of tubulovillous adenoma. 3. Other, with explanation of the clinical findings. 4. Clinically undetermined, no explanation for the clinical findings. Is is appropriate for a provider to add additional documentation (addenda) to the record to explain the evaluation & care up to 30 days post-discharge. See [facility] and Patient Record Guidelines below. The [facility] Chapter Record of Care, Standard; RC.01.03.01EP 1: "The hospital has a written policy that required timely entry of information into the medical record." According to [facility] Patient Record Guidelines, ARTICLE XXI. CORRECTIONS AND ADDENDA, Modifications (addenda amendments, corrections and retractions) should be made timely and no later than regulatory requirements for record completion (i.e. 30 days post discharge). Official coding guidelines require coders to query the physician for agreement with pathology findings that occur during the encounter. Coders are not allowed to pull information directly from the path reports. PHYSICIAN RESPONSE Pathology Report Findings: Yes,agree w/path dx as documented In responding to this query, please exercise your independent professional judgment. The purpose of this communication is to more accurately reflect the complexity of your patients condition. The fact that a question is asked does not imply that any particular answer is desired or expected. Thank you for your timely response to this clarification. Requestors name: Venkatesh THIS PHYSICIAN QUERY FORM IS A PERMANENT PART OF THE MEDICAL RECORD VENKATESH DE DIOS Jul 16, 2022 14:32 GERTRUDE BUSH DO Jul 25, 2022 19:13
== END 2022-07-11 18:15 | disposition home or self-care (01) | DRG 330 ==
LOC: 4TH 10:08 → SURG 10:09 → 4TH 14:30
PROVIDERS: ADMIT Surgery; ATTEND Surgery
PROC: 0DTF0ZZ Resection of Right Large Intestine, Open Approach (ICD-10-PCS; principal; 2022-07-04 11:20)
DX: D12.2 Benign neoplasm of ascending colon (principal); E87.0 Hyperosmolality and hypernatremia; K56.7 Ileus, unspecified; K91.89 Other postprocedural complications and disorders of digestive system; E87.6 Hypokalemia; E11.9 Type 2 diabetes mellitus without complications; I10 Essential (primary) hypertension; F17.210 Nicotine dependence, cigarettes, uncomplicated; Z79.84 Long term (current) use of oral hypoglycemic drugs; F41.9 Anxiety disorder, unspecified; F32.A Depression, unspecified; Z88.0 Allergy status to penicillin
CPT/HCPCS: 36415; 71045; 80053; 82947; 85007; 85025; 85027; 86850; 86900; 86901; 87081; 88305; 88309; 94664

== ENCOUNTER 2022-10-03 05:30 | Outpatient (CLI) | payer OTHER ==
[~2022-10-03] VITALS: Ht 177.8 cm; Wt 88.5 kg
[~2022-10-03 05:30] MED LIST changes: +ACHD5005 PO
== END 2022-10-04 12:18 | disposition home or self-care (01) ==
LOC: PREOP 05:30
PROVIDERS: ATTEND Surgery
DX: Z01.818 Encounter for other preprocedural examination (principal)

== ENCOUNTER 2022-10-10 10:11 | Day surgery (SDC) | payer OTHER ==
[2022-10-10] VITALS (12 sets, daily range): BP systolic 126–203; BP diastolic 79–101
[~2022-10-10] VITALS: Ht 177 cm; Wt 88.5 kg
[2022-10-10] MEDS ORDERED: CLINDAMYCIN 600 MG/50 ML IVPB 50 ML IV ONE (10:30)
[2022-10-10] MEDS ORDERED: BUP/EPI 0.5% 1:200,000 (SENSORCAINE) 30 ML VIAL ONE (10:42)
[2022-10-10] MEDS ORDERED: ROCURONIUM 50 MG/5 ML (ZEMURON) VIAL IV ONE (10:51)
[2022-10-10] MEDS ORDERED: proPOfol 200 MG/20 ML (DIPRIVAN) VIAL IV ONE (10:51)
[2022-10-10] MEDS: LACTATED RINGERS 1,000 ML IV PRN ×2 (10:51→12:35)
[2022-10-10] MEDS ORDERED: LIDOCAINE PF 2% 5 ML (XYLOCAINE) VIAL ONE (10:51)
[2022-10-10] MEDS ORDERED: MIDAZOLAM 2 MG/2 ML (VERSED) VIAL ONE (10:52)
[2022-10-10] MEDS ORDERED: fentaNYL INJ 100 MCG/2 ML AMP ONE ×2 (10:52→12:49)
--- NOTE | 2022-10-10 10:52 | Progress Note-Pre Operative ---
Pre-Operative Progress Note Date H&P Reviewed: Oct 10, 2022 Time H&P Reviewed: 10:52 History & Physical: H&P Reviewed, Patient Examed, No changes noted Pre-Operative Diagnosis: incisional hernia GERTRUDE DUDLEY DO Oct 10, 2022 10:52
[2022-10-10] MEDS ORDERED: GLYCOPYRROLATE 0.2 MG/ML (ROBINUL) 2 ML VIAL ONE (11:37)
[2022-10-10] MEDS ORDERED: ONDANSETRON 4 MG/2 ML (SDV) Z0FRAN ONE (11:37)
[2022-10-10] MEDS ORDERED: NEOSTIGMINE (BLOXIVERZ ) 1 MG/1ML 10 ML VIAL ONE (11:37)
[2022-10-10] MEDS ORDERED: SEVOFLURANE (ULTANE) 15 ML INHAL SOLN ONE (11:37)
[2022-10-10] MEDS ORDERED: DOCU-143 PO (12:43)
[2022-10-10] MEDS ORDERED: ACHD5005 PO (12:43)
--- NOTE | 2022-10-10 12:45 | Discharge Inst-Simple/Standard ---
Discharge Inst-Standard Discharge Medications New, Converted or Re-Newed RX: Transmitted to Pharmacy Patient Instructions/Follow Up Plan of Care/Instructions/FU: 2 weeks Rachelle Activity as Tolerated: No Discharge Diet: Regular Diet Other Inst to Patient Follow up Appt: Make appointment for 2 week. Instructions: No lifting greater than 10 pounds. No strenuous activity. May shower in 24 hours, no tub bath or soaking. Use incentive spirometer at home as directed. No Smoking Skin/Wound Care: You have special glue over your incision that will fall off on it's own. Symptoms to Report: Appetite Changes, Extremity Discoloration, Numbness/Tingling, Swelling Increased, Bleeding Excessive, Eyesight Changes, Pain Increased, Urine Color Change, Constipation(Persistent), Fever over 101 degree F, Pain/Pressure in chest, Urinating Difficulty, Cough Up/Vomit Blood, Heart Beat Irreg/Pounding, Pain/Pressure in jaw, Vaginal Bleeding Increase, Cramps in feet or legs, Lightheadedness, Pain/Pressure in shoulder, Diarrhea(Persistent), Memory Changes Suddenly, Questions/Concerns, Weight gain consecutive days, Dizziness/Fainting, Nausea/Vomiting, Shortness of Breath, Weight gain over 2 pounds If questions or concerns contact your physician Or seek help at emergency department. GERTRUDE DUDLEY DO Oct 10, 2022 12:45
--- NOTE | 2022-10-10 12:46 | Progress Note-Post Operative ---
Post-Operative Progess Note Surgeon (s)/Retail Warehouse Supervisor (s) Surgeon GERTRUDE DUDLEY DO Retail Warehouse Supervisor: Dr. Parkinson Pre-Operative Diagnosis incisional hernia Post-Operative Diagnosis incarcerated incisional hernia with diastasis Procedure & Operative Findings Date of Procedure 10/10/22 Procedure Performed/Findings robotic incarcerated incisional hernia repair with repair of diastasis with mesh placment Anesthesia Type general Estimated Blood Loss Estimated blood loss (mL): minimal Specimens/Packing Specimens Removed na GERTRUDE DUDLEY DO Oct 10, 2022 12:46
[2022-10-10] MEDS ORDERED: fentaNYL INJ 100 MCG/2 ML AMP IVP ONE ×2 (13:00)
[2022-10-10] MEDS ORDERED: HYDROmorphone 2 MG/ML VIAL (DILAUDID) IV ONE (13:00)
[2022-10-10] MEDS ORDERED: ONDANSETRON 4 MG/2 ML (SDV) Z0FRAN IVP PRN (13:00)
--- NOTE | 2022-10-10 13:00 | Anesthesia-General Post-Op ---
General Patient Condition Mental Status/LOC: Same as Preop Cardiovascular: Satisfactory Nausea/Vomiting: Absent Respiratory: Satisfactory Pain: Controlled Complications: Absent Post Op Complications Complications None Follow Up Care/Instructions Patient Instructions None needed. Anesthesia/Patient Condition Patient Condition Patient is doing well, no complaints, stable vital signs, no apparent adverse anesthesia problems. No complications reported per nursing. ALICIA OTTO CRNA Oct 10, 2022 12:59
[2022-10-10] MEDS ORDERED: HYDROcodone/APAP 5 MG/325 MG (LORTAB) TAB ONE (13:57)
[2022-10-10] MEDS ORDERED: HYDROcodone/APAP 5 MG/325 MG (LORTAB) TAB PO ONE (14:00)
--- NOTE | 2022-10-11 16:03 | OPERATIVE REPORT ---
DATE OF SERVICE: 10/10/2022 PREOPERATIVE DIAGNOSIS: Incisional hernia. POSTOPERATIVE DIAGNOSIS: Incisional hernia. PROCEDURE: Incarcerated incisional hernia with diastasis. SURGEON: Gertrude Bush DO NURSE PRN: Colton Parkinson DO. Dr. Parkinson assisted in retraction, dissection, and closure. ANESTHESIA: General. ESTIMATED BLOOD LOSS: Minimal. COMPLICATIONS: None. INDICATIONS: The patient is a 57-year-old male with history of right colon resection. He developed an incisional hernia. He understands risks and benefits of procedure and wishes to proceed. Consent was signed in chart. DESCRIPTION OF PROCEDURE: The patient was taken to the operating suite where he was prepped and draped in sterile fashion. Timeout was performed. Local anesthetic was infiltrated in the left upper quadrant. An #11 blade scalpel was used to make a skin incision. Cautery used to dissect down to the fascia, which was then scored. The muscle was then divided. The posterior sheath was then opened and a inman trocar was inserted. Pneumoperitoneum was achieved. Under direct visualization of laparoscope, two 8 mm trocars were placed inferiorly to the inman. The robot was then docked. Incarcerated omentum up through the hernia defect present, also multiple adhesions present as well. The cautery and cautery scissors were then used to begin to free up all the adhesions along with reducing the hernia contents. Once this was all reduced, there was approximately 4 cm defect also with significant diastasis present. Using a STRATAFIX, the hernia defect was then closed and closing the defect and the diastasis in both directions. The falciform ligament was taken down and also a fat pad had to be taken down inferiorly as well prior to closure. The closure was taken down with a decreased pressure. The robot was then undocked. A 5 mm trocar was placed in the right side of the abdomen. A 6.5 inch oval mesh, Bard echo Ventralight mesh was inserted into the abdomen. It was grasped through a stab incision as a midline. A secure strap tacker was then used to place circumferential tacks. The balloon was then removed. An inner crown was created as well with adequate coverage. The abdomen was then desufflated. The trocars were removed. The fascia at the 12 mm trocar site was then closed using 0 Vicryl in [id number] fashion. The abdomen was then washed and dried. Skin was then closed with 4-0 Monocryl. Skin Affix was placed over the incisions. The patient tolerated the procedure well without complications, taken to recovery room in stable condition. Job ID: [id number] DocumentID: [id number] Dictated Date: 10/11/2022 09:22:00 Quantitative Developer Date: 10/11/2022 16:00:00 Dictated By: GERTRUDE BUSH DO
== END 2022-10-10 15:00 | disposition home or self-care (01) ==
LOC: SDC 10:11
PROVIDERS: ATTEND Surgery
DX: K43.0 Incisional hernia with obstruction, without gangrene (principal); K66.0 Peritoneal adhesions (postprocedural) (postinfection); F17.210 Nicotine dependence, cigarettes, uncomplicated; Z85.038 Personal history of other malignant neoplasm of large intestine; Z28.310 Unvaccinated for COVID-19
CPT/HCPCS: 49594; 87081; C1781

== ENCOUNTER 2023-04-13 21:25 | Observation (INO) | payer OTHER ==
[~2023-04-13] VITALS: Ht 175 cm; Wt 81.0 kg
[~2023-04-13 21:25] MED LIST changes: +DOCU-143 PO
[2023-04-13] MEDS ORDERED: ASPIRIN 81 MG CHEWABLE TABLET ONE (21:45)
[2023-04-13] MEDS ORDERED: ASPIRIN 81 MG CHEWABLE TABLET PO ONE (21:45)
[2023-04-13 21:48] LABS: BASOPHILS # (AUTO) 0.1 10^3/uL (0.0-0.1); BASOPHILS % (AUTO) 1 % (0-10); EOSINOPHILS # (AUTO) 0.2 10^3/uL (0.0-0.3); EOSINOPHILS % (AUTO) 2 % (0-10); HEMATOCRIT 42 % (40-54); LYMPHOCYTES % (AUTO) 23 % (12-44); MEAN CORPUSCULAR HEMOGLOBIN 31 pg (25-34); MEAN CORPUSCULAR HGB CONC 34 g/dL (32-36); MEAN CORPUSCULAR VOLUME 91 fL (80-99); MEAN PLATELET VOLUME 11.5 fL (9.0-12.2); MONOCYTES # (AUTO) 1.2 10^3/uL (0.0-1.0); MONOCYTES % (AUTO) 9 % (0-12); NEUTROPHILS # (AUTO) 8.7 10^3/uL (1.8-7.8); NEUTROPHILS % (AUTO) 66 % (42-75); PLATELET COUNT 220 10^3/uL (130-400); WHITE BLOOD COUNT 13.3 10^3/uL (4.3-11.0)
[2023-04-13] MEDS: NITROGLYCERIN 0.4 MG SL TABLETS BTL 25'S SL PRN ×2 (21:48→22:24)
[2023-04-13 22:01] LABS: PROTHROMBIN TIME PATIENT 13.2 SEC (12.2-14.7)
[2023-04-13 22:10] LABS: ALANINE AMINOTRANSFERASE 22 U/L (0-55); ALBUMIN 4.3 GM/DL (3.2-4.5); ALKALINE PHOSPHATASE 55 U/L (40-136); BILIRUBIN,TOTAL 0.4 MG/DL (0.1-1.0); BUN/CREATININE RATIO 8; CALCIUM 9.3 MG/DL (8.5-10.1); CARBON DIOXIDE 24 MMOL/L (21-32); CHLORIDE 107 MMOL/L (98-107); CREATININE SERUM 0.77 MG/DL (0.60-1.30); GFR ESTIMATED 103; GLUCOSE 87 MG/DL (70-105); MAGNESIUM 2.3 MG/DL (1.6-2.4); POTASSIUM 3.3 MMOL/L (3.6-5.0); SODIUM 143 MMOL/L (135-145); TOTAL PROTEIN 7.8 GM/DL (6.4-8.2)
[2023-04-13] MEDS ORDERED: meTOprolol INJECTION 5 MG/5 ML VIAL IV ONE (22:30)
[2023-04-13] MEDS ORDERED: NS 100 ML (IVPB) BAG IV ONE (23:00)
[2023-04-13] MEDS ORDERED: HOLD METFORMIN - RECEIVED CONTRAST 20 ML VIAL IV SCH (23:00)
[2023-04-13] MEDS ORDERED: IOHEXOL 350 MG/ML 100 ML (OMNIPAQUE 350) VIAL IV ONE (23:00)
[2023-04-13] MEDS ORDERED: CATHETER FLUSH 10 ML SYR IV PRN (23:00)
--- NOTE | 2023-04-13 23:53 | ED Chest Pain ---
General Chief Complaint: Chest Pain Stated Complaint: CHEST PAIN/SOA Source: patient Exam Limitations: no limitations History of Present Illness Date Seen by Provider: Apr 13, 2023 Time Seen by Provider: 21:37 Initial Comments Here with report of central chest pain that radiates to his back. Onset this evening. Does have history of high blood pressure but is not really taking his medications. He occasionally takes his lisinopril. He does smoke. He denies n ausea, vomiting or weakness. Does complain of some shortness of air. States that he was quite hot tonight on the way to the hospital. Follows with [facility]. Timing/Duration: 1 hour Severity/Quality: moderate, aching, pressure Location: central Radiation: back Activities at Onset: none Prior CP/Workup: no prior cardiac workup ASA po PROJECT DEVELOPER: No NTG SL PROJECT DEVELOPER: No Associated Symptoms: No abdominal pain; back pain; No diaphoresis, No edema, No nausea/vomiting; shortness of breath, weakness Allergies and Home Medications Allergies Coded Allergies: Penicillins (Unverified Allergy, Unknown, 07/02/22) Patient Home Medication List Home Medication List Reviewed: Yes Docusate Sodium (Colace) 100 Mg Capsule, 100 MG PO BID Prescribed by: GERTRUDE DUDLEY on 10/10/22 1243 Hydrocodone/Acetaminophen (Hydrocodone-Acetamin 5-325 mg) 5 Mg-325 Mg Tablet, 1 EACH PO Q4H PRN for PAIN-MODERATE (5-7) Prescribed by: GERTRUDE DUDLEY on 10/10/22 1244 Lisinopril (Lisinopril) 20 Mg Tablet, 20 MG PO DAILY, (Reported) Entered as Reported by: JOSÉ LUIS AGARWAL on 07/02/22 1516 Review of Systems Review of Systems Constitutional: see HPI; No chills, No fever EENTM: No Symptoms Reported Respiratory: Denies Cough; Shortness of Air Cardiovascular: Chest Pain; Denies Edema Gastrointestinal: Denies Nausea, Denies Vomiting Genitourinary: No Symptoms Reported Musculoskeletal: back pain Skin: no symptoms reported Psychiatric/Neurological: No Symptoms Reported Endocrine: No Symptoms Reported Past Ukgfmoe-Xiwctb-Vcdgjb Hx Patient Social History Tobacco Use?: Yes Tobacco type used: Cigarettes Use of E-Cig and/or Vaping dev: No Substance use?: No Immunizations Up To Date Tetanus Booster (TDap): Unknown First/Initial COVID19 Vaccinat: 2020 Second COVID19 Vaccination Warner: 2020 Third COVID19 Vaccination Date: 2020 Seasonal Allergies Seasonal Allergies: No Past Medical History Surgeries: Yes (COLON RESCETION, HIATAL HERNIA REPAIR) Abdominal Respiratory: No Cardiac: Yes Hypertension Neurological: No Genitourinary: No Gastrointestinal: Yes (COLON CANCER WITH RESECTION) Hiatal Hernia Musculoskeletal: Yes Arthritis Endocrine: Yes Diabetes, Non-Insulin dep HEENT: No Loss of Vision: Denies Hearing Impairment: Denies Cancer: Yes Colon Psychosocial: No Anxiety, Depression Integumentary: No Blood Disorders: No Adverse Reaction/Blood Tranf: No Family Medical History Reviewed Nursing Family Hx No Pertinent Family Hx Physical Exam Vital Signs Capillary Refill : Height, Weight, BMI Height: 5'10.00" Weight: 232lbs. oz. 105.958303vn; 28.24 BMI Method: General Appearance: WD/WN, Mild Distress HEENT: PERRL/EOMI, Pharyngeal Erythema Neck: Non Tender, Supple Progress/Results/Core Measures Results/Orders Lab Results Laboratory Tests Test 04/13/23 21:41 04/14/23 00:30 Range/Units White Blood Count 13.3 H 4.3-11.0 10^3/uL Red Blood Count 4.58 4.30-5.52 10^6/uL Hemoglobin 14.0 13.3-17.7 g/dL Hematocrit 42 40-54 % Mean Corpuscular Volume 91 80-99 fL Mean Corpuscular Hemoglobin 31 25-34 pg Mean Corpuscular Hemoglobin Concent 34 32-36 g/dL Red Cell Distribution Width 13.7 10.0-14.5 % Platelet Count 220 130-400 10^3/uL Mean Platelet Volume 11.5 9.0-12.2 fL Immature Granulocyte % (Auto) 0 % Neutrophils (%) (Auto) 66 42-75 % Lymphocytes (%) (Auto) 23 12-44 % Monocytes (%) (Auto) 9 0-12 % Eosinophils (%) (Auto) 2 0-10 % Basophils (%) (Auto) 1 0-10 % Neutrophils # (Auto) 8.7 H 1.8-7.8 10^3/uL Lymphocytes # (Auto) 3.0 1.0-4.0 10^3/uL Monocytes # (Auto) 1.2 H 0.0-1.0 10^3/uL Eosinophils # (Auto) 0.2 0.0-0.3 10^3/uL Basophils # (Auto) 0.1 0.0-0.1 10^3/uL Immature Granulocyte # (Auto) 0.1 0.0-0.1 10^3/uL Prothrombin Time 13.2 12.2-14.7 SEC INR Comment 1.0 0.8-1.4 Activated Partial Thromboplast Time 33 24-35 SEC Sodium Level 143 135-145 MMOL/L Potassium Level 3.3 L 3.6-5.0 MMOL/L Chloride Level 107 98-107 MMOL/L Carbon Dioxide Level 24 21-32 MMOL/L Anion Gap 12 5-14 MMOL/L Blood Urea Nitrogen 6 L 7-18 MG/DL Creatinine 0.77 0.60-1.30 MG/DL Estimat Glomerular Filtration Rate 103 BUN/Creatinine Ratio 8 Glucose Level 87 70-105 MG/DL Calcium Level 9.3 8.5-10.1 MG/DL Corrected Calcium 9.1 8.5-10.1 MG/DL Magnesium Level 2.3 1.6-2.4 MG/DL Total Bilirubin 0.4 0.1-1.0 MG/DL Aspartate Amino Transf (AST/SGOT) 18 5-34 U/L Alanine Aminotransferase (ALT/SGPT) 22 0-55 U/L Alkaline Phosphatase 55 40-136 U/L Myoglobin 25.1 10.0-92.0 NG/ML Troponin I < 0.028 0.043 H <0.028 NG/ML Total Protein 7.8 6.4-8.2 GM/DL Albumin 4.3 3.2-4.5 GM/DL My Orders Orders - JOANNA MONROY MD Ekg Tracing (04/13/23 21:33) Cbc And Automated Diff (04/13/23 21:36) Magnesium (04/13/23 21:36) Chest 1 View, Ap/Pa Only (04/13/23 21:36) Comprehensive Metabolic Panel (04/13/23 21:36) Myoglobin Serum (04/13/23 21:36) Protime With Inr (04/13/23 21:36) Partial Thromboplastin Time (04/13/23 21:36) O2 (04/13/23 21:36) Monitor-Rhythm Ecg Trace Only (04/13/23 21:36) Lipid Panel (04/14/23 06:00) Ed Iv/Invasive Line Start (04/13/23 21:36) Troponin I Cuming (04/13/23 21:36) Nitroglycerin 0.4 Mg Btl 25's (Nitroglyc (04/13/23 21:45) Aspirin Chewable Tablet (Aspirin Chewabl (04/13/23 21:45) Aspirin Chewable Tablet (Aspirin Chewabl (04/13/23 21:45) Metoprolol Tartrate Injection (Metoprolo (04/13/23 22:30) Ct Angio Chest W(R/O Tad) (04/13/23 22:19) Iohexol Injection (Omnipaque 350 Mg/Ml 1 (04/13/23 23:00) Received Contrast (Hold Metformin- Contr (04/13/23 23:00) Sodium Chloride Flush (Catheter Flush Sy (04/13/23 23:00) Ns (Ivpb) 100 Ml (Sodium Chloride 0.9% 1 (04/13/23 23:00) Lisinopril Tablet (Lisinopril Tablet) (04/14/23 00:00) Amlodipine Tablet (Amlodipine Tablet) (04/14/23 09:00) Amlodipine Tablet (Amlodipine Tablet) (04/14/23 00:06) Troponin I Monserrat (04/14/23 00:24) Hydralazine Injection (Hydralazine Injec (04/14/23 01:00) Nicotine Patch (Nicotine Patch) (04/14/23 01:15) Medications Given in ED Current Medications Medications Dose Ordered Sig/Dionte Route Start Time Stop Time Status Last Admin Dose Admin Aspirin 324 mg ONCE ONCE PO 04/13/23 21:45 04/13/23 21:46 DC 04/13/23 21:47 324 MG Hydralazine HCl 10 mg ONCE ONCE IV 04/14/23 01:00 04/14/23 01:01 DC 04/14/23 01:08 10 MG Iohexol 100 ml ONCE ONCE IV 04/13/23 23:00 04/13/23 23:01 DC 04/13/23 23:01 90 ML Lisinopril 20 mg ONCE ONCE PO 04/14/23 00:00 04/14/23 00:01 DC 04/14/23 00:21 20 MG Metoprolol Tartrate 5 mg ONCE ONCE IV 04/13/23 22:30 04/13/23 22:31 DC 04/13/23 22:31 5 MG Nitroglycerin 0.4 mg UD PRN SL 04/13/23 21:45 04/13/23 22:24 0.4 MG Sodium Chloride 10 ml NEEDED PRN IV 04/13/23 23:00 04/13/23 23:01 10 ML Sodium Chloride 100 ml ONCE ONCE IV 04/13/23 23:00 04/13/23 23:01 DC 04/13/23 23:01 80 ML Progress Progress Note : Progress Note Seen and evaluated. IV, labs including CBC, CMP, troponin, myoglobin and coags ordered. ASA 324 mg p.o. and nitroglycerin sublingual ordered. Differential diagnosis includes cardiac event, malignant hypertension electrolyte abnormality. 2218: Patient is having pain that radiates from chest to back with uncontrolled hypertension: We did give metoprolol 5 mg IV and have ordered CT angiogram chest to rule out thoracic aortic dissection. 2310: I have reviewed CT angiogram of the chest and do not see thoracic aortic dissection on my interpretation. Chest x-ray reviewed and no obvious infiltrate noted on my interpretation. CBC reviewed and shows slightly elevated white count but otherwise no significant findings. Coags are normal. Chemistry shows slightly low potassium at 3.3 with normal creatinine and normal myoglobin and troponin with normal LFTs. We will repeat troponin at 0030. Patient was given lisinopril 20 mg p.o. and amlodipine 10 mg p.o. 0108: Repeat troponin is elevated. Blood pressure is also elevated. I have added hydralazine 10 mg IV. I did discuss the case with the family worker on-call, Dr. Jeffries, and she accepts patient for admission, observation status to the cardiac stepdown. We will continue lisinopril and amlodipine. Patient did not want to stay but given the challenges with his blood pressure and his elevated troponin, it is in his best interest which she agreed. To consult cardiology in a.m. Patient agrees to plan. Initial ECG Impression Date: Apr 13, 2023 Initial ECG Impression Time: 21:39 Initial ECG Rhythm: Normal Sinus Comment Sinus rhythm with normal axis. No evidence of ST elevation CT. LVH noted. Interpreted by me. Diagnostic Imaging Diagonstic Imaging: CT Plain Films/CT/US/NM/MRI: chest Comments CT angiogram chest rule out thoracic aortic dissection shows normal chest CTA with no pulmonary embolism per stat rad read. Thoracic aorta shows no aneurysm. Departure Communication (Admissions) Time/Spoke to Admitting Phy: 01:08 Impression Primary Impression: Chest pain Qualified Codes: R07.9 - Chest pain, unspecified Additional Impressions: Malignant hypertension Non-STEMI (non-ST elevated myocardial infarction) Disposition: ADMITTED INPATIENT Condition: Stable Admissions Decision to Admit Reason: Admit from ER (General) Decision to Admit/Date: Apr 14, 2023 Time/Decision to Admit Time: 01:08 Departure-Patient Inst. Referrals: [facility] (PCP) Primary Care Physician YASEMIN RILEY APRN (Family) Primary Care Physician JOANNA MONROY MD Apr 13, 2023 23:53
[2023-04-14] VITALS (16 sets, daily range): BP systolic 139–192; BP diastolic 67–116
[2023-04-14] MEDS ORDERED: amLODIPine 5 MG TABLET ONE (00:06)
[2023-04-14] MEDS ORDERED: hydrALAZINE INJECTION 20 MG/ML VIAL IV ONE (01:00)
[2023-04-14] MEDS ORDERED: NICOTINE 21 MG PATCH TD ONE (01:15)
[2023-04-14] MEDS ORDERED: NITROGLYCERIN 0.4 MG SL TABLETS BTL 25'S SL PRN (02:45)
[2023-04-14] MEDS ORDERED: morphine INJ 4 MG/ML 1 ML (VIAL/SYRINGE) IV PRN (02:45)
[2023-04-14] MEDS ORDERED: ONDANSETRON INJECTION 4 MG/2 ML (SDV) IVP PRN (02:45)
[2023-04-14] MEDS ORDERED: hydrALAZINE INJECTION 20 MG/ML VIAL IV PRN (02:45)
[2023-04-14 06:00] LABS: BASOPHILS # (AUTO) 0.1 10^3/uL (0.0-0.1); BASOPHILS % (AUTO) 0 % (0-10); EOSINOPHILS # (AUTO) 0.3 10^3/uL (0.0-0.3); EOSINOPHILS % (AUTO) 2 % (0-10); HEMATOCRIT 44 % (40-54); HEMOGLOBIN 14.7 g/dL (13.3-17.7); LYMPHOCYTES # (AUTO) 3.2 10^3/uL (1.0-4.0); LYMPHOCYTES % (AUTO) 27 % (12-44); MEAN CORPUSCULAR HEMOGLOBIN 31 pg (25-34); MEAN CORPUSCULAR HGB CONC 34 g/dL (32-36); MEAN CORPUSCULAR VOLUME 91 fL (80-99); MEAN PLATELET VOLUME 12.2 fL (9.0-12.2); MONOCYTES % (AUTO) 9 % (0-12); NEUTROPHILS # (AUTO) 7.2 10^3/uL (1.8-7.8); NEUTROPHILS % (AUTO) 61 % (42-75); PLATELET COUNT 227 10^3/uL (130-400); WHITE BLOOD COUNT 11.7 10^3/uL (4.3-11.0)
--- NOTE | 2023-04-14 07:07 | Diagnostic Imaging Report ---
INDICATION: Chest pain and dyspnea. CTA of the chest is performed after bolus intravenous administration of iodinated contrast. Three-D reformatted images are produced. Automatic exposure controls were utilized to keep dose as low as reasonably achievable. COMPARISON: 06/04/2022 There is good opacification pulmonary arteries without intraluminal filling defect. Thoracic aorta is of normal caliber without evidence of dissection. There is no consolidation. No significant pleural or pericardial fluid is identified. Lucent regions in the spleen noted on the previous study are again noted and mildly increased in conspicuity. IMPRESSION: No CTA evidence of pulmonary embolism or other acute abnormality in the chest. Below the diaphragm, note is made of several low-density foci in the spleen which were present on the study of 06/04/2022 which have shown mild increase in prominence. Consideration could be given to followup abdominal CT if indicated. Dictated by: Dictated on workstation # [id number]
--- NOTE | 2023-04-14 07:18 | History & Physical ---
MARYLU HERRERA MD,RESIDENT 04/14/23 0718: HPI History of Present Illness: CC: Chest pain HPI: Pt is a 58 yo male with a medical history significant for CAD h/o cardiac cath and tilt test (2013), uncontrolled HTN, T2DM, medication non-compliance who presented to the ED for acute onset central CP that radiates to his back with associated SOB on ambulation. He denies N/V/D, vision changes, headaches at this time. EKG demonstrates LVH and nonspecific ST T changes. Troponin <0.028. Admitted for further management. Source: patient Exam Limitations: no limitations Time Seen by Provider: 08:15 Attending Physician [place] PCP Admitting Physician: Mia Pearson MD Attending Physician: Mia Pearson MD Consult Date of Admission Apr 14, 2023 at 02:08 Home Medications Home Medications Reviewed patient Home Medication Reconciliation performed by pharmacy medication reconciliations technician anatomic pathology and/or nursing. Patients Allergies have been reviewed. Allergies Coded Allergies: Penicillins (Unverified Allergy, Unknown, 07/02/22) NSC-Hvgpns-Iwdyxb Hx Patient Social History Smoking Status: Heavy Tobacco Smoker 2nd Hand Smoke Exposure: Yes Recent Hopitalizations: Yes Alcohol Use?: No Tobacco type used: Cigarettes Immunizations Up To Date Tetanus Booster (TDap): Unknown Influenza Vaccine Up-to-Date: No; Not Current First/Initial COVID19 Vaccinat: 2020 Second COVID19 Vaccination Warner: 2020 Third COVID19 Vaccination Date: 2020 Family Medical History Significant Family History: No Pertinent Family Hx Review of Systems (CHC) Constitutional: no symptoms reported EENTM: no symptoms reported Respiratory: no symptoms reported Cardiovascular: see HPI Gastrointestinal: no symptoms reported Genitourinary: no symptoms reported Musculoskeletal: no symptoms reported Skin: no symptoms reported Physical Exam-([facility]) Physical Exam Vital Signs VS - Last 72 Hours, by Label 04/13/23 04/14/23 04/14/23 04/14/23 21:34 02:03 02:24 02:24 Temp 36.5 Pulse 73 64 63 58 Resp 16 16 21 B/P (MAP) 193/89 (123) 190/85 179/85 (126) Pulse Ox 95 99 97 O2 Delivery Room Air Room Air Room Air 04/14/23 04/14/23 04/14/2304/14/23 03:12 03:21 04:05 04:34 Temp 36.5 36.5 Pulse 62 61 61 Resp 18 18 B/P (MAP) 179/87 (117) 185/84 (125) 189/84 (119) Pulse Ox 97 97 97 97 O2 Delivery Room Air Room Air Room Air Room Air 04/14/23 04/14/23 04/14/23 04/14/23 07:02 07:48 08:34 09:16 Temp 36.5 Pulse 55 76 60 Resp 16 20 B/P (MAP) 139/116 (124) 172/92 (118) Pulse Ox O2 Delivery Room Air 04/14/23 04/14/23 04/14/23 04/14/23 09:42 09:43 09:53 10:00 Pulse 63 63 58 Resp 20 18 18 B/P (MAP) 185/82 (116) 180/84 (116) 170/67 (101) Pulse Ox 94 94 95 O2 Delivery Room Air Room Air Room Air Room Air 04/14/23 04/14/23 04/14/23 04/14/23 11:49 12:47 13:00 14:50 Temp 36.5 Pulse 71 70 57 60 Resp 20 16 18 B/P (MAP) 175/87 (116) 160/76 (104) Pulse Ox 100 96 95 O2 Delivery Room Air Room Air Room Air 04/14/23 15:39 Temp 36.6 Pulse 54 Resp 17 B/P (MAP) 192/73 (112) Pulse Ox 97 O2 Delivery Room Air Capillary Refill : Less Than 3 Seconds General Appearance: no apparent distress Eyes: Bilateral Eye EOMI Neck: non-tender, supple Respiratory: chest non-tender, lungs clear, normal breath sounds, no respiratory distress, no accessory muscle use Cardiovascular: regular rate, rhythm Gastrointestinal: non tender, soft Extremities: no pedal edema Neurologic/Psychiatric: alert, normal mood/affect, oriented x 3 Skin: warm/dry Assessment/Plan Assessment/Plan Admission Status: Observation Reason for Inpatient Admission: Chest pain (1) Chest pain Status: Acute Assessment & Plan: Acute onset central chest pain that radiates to the back 04/13 Denies chest pain on exam 04/14 PLAN: Cardiology consult - recommend stress test Telemetry Echo CTA chest: NEG for PE or AA Nitroglycerin Morphine Troponin <0.038-->0.043-->0.028 Qualifiers: Qualified Codes: R07.9 - Chest pain, unspecified (2) Hypertension Status: Chronic Assessment & Plan: PLAN: PLANNING ADVISOR lisinopril Hydralazine for SBP >200 Telemetry (3) Diabetes mellitus, type 2 Status: Chronic Assessment & Plan: Pt reports no current home medication, previously on Metformin PLAN: Low-dose insulin slide scale ACHS BG Clinical Quality Measures AMI/AHF: ASA po Prior to arrival: No MIA PEARSON MD 04/14/23 2158: Home Medications Allergies Coded Allergies: Penicillins (Unverified Allergy, Unknown, 07/02/22) Supervisory-Addendum Brief Supervisory Addendum I personally performed the inman portions of the visit, discussed case with resident and concur with resident documentation of history, physical exam, assessment and treatment plan unless otherwise noted. MARYLU HERRERA MD,RESIDENT Apr 14, 2023 07:18 MIA PEARSON MD Apr 14, 2023 21:58
--- NOTE | 2023-04-14 07:22 | Diagnostic Imaging Report ---
INDICATION: Chest pain Single AP view of the chest is obtained with comparison made to study of 07/07/2022. FINDINGS: Heart size and pulmonary vascularity are within normal limits, and the lungs are clear, bilaterally. IMPRESSION: Unremarkable chest. Dictated by: Dictated on workstation # [id number]
[2023-04-14] MEDS ORDERED: amLODIPine 5 MG TABLET PO SCH (09:00)
[2023-04-14] MEDS: ASPIRIN enteric coated 81MG TABLET PO SCH ×2 (09:45→11:50)
[2023-04-14] MEDS: amLODIPine 10 MG TABLET PO SCH ×2 (09:46→11:50)
--- NOTE | 2023-04-14 10:55 | Consultation-Cardiology ---
HPI-Cardiology Cardiology Consultation: Date of Consultation 04/14/23 Time Seen by a Provider: 10:45 Date of Admission 04-13-23 Attending Physician [facility] Admitting Physician Admitting Physician: Hawa Pearson MD Attending Physician: Hawa Pearson MD Consulting Physician Onesimo Castellano MD HPI: Chief Complaint: Chest pain Mr. Alejo is a 58 yr old male admitted to 509 from the ED with c/o CP. He reports last night when he went to bed he developed a sharp, localized, stabbing chest pain on the left side. No radiation. He reports the pain would last for a few seconds and then return. It did not change with deep breathing or movement. He denies any n/v/d. He denies any diaphoresis. He states he felt "hot". He reports having some dizziness last night. No c/o palpitations. He reports he did have a feeling of soreness in between his shoulder blades after the pain went away in the ED which has resolved. He smoke cigs approx 1 PPD. He reports he is supposed to be taking Lisinopril for BP, but he has not had it for several months. He reports no further c/o this morning. Review of Systems-Cardiology Review of Systems Constitutional: No chills, No fever; lightheadedness Eyes: No vision change Ears/Nose/Throat: No epistaxis, No recent hearing loss Respiratory: As described under HPI Cardiovascular: As described under HPI Gastrointestinal: No constipation, No diarrhea, No nausea, No vomiting Genitourinary: No hematuria Musculoskeletal: As describe under HPI Skin: No rash on exposed areas, No ulcerations on exposed areas Psychiatric/Neurological: No anxiety, No depression, No seizure, No focal weakness, No syncope Hematologic: No bleeding abnormalities FOU-Zixntq-Hgbvmz Hx Patient Social History Smoking Status: Heavy Tobacco Smoker 2nd Hand Smoke Exposure: Yes Alcohol Use?: No Pt feels they are or have been: No Tobacco type used: Cigarettes Immunizations Up To Date Tetanus Booster (TDap): Unknown Past Medical History PMH As described under Assessment. Family Medical History Family Medical History: No reported family h/o CAD Allergies and Home Medications Allergies Coded Allergies: Penicillins (Unverified Allergy, Unknown, 07/02/22) Patient Home Medication List No Active Prescriptions or Reported Meds Physical Exam-Cardiology Physical Exam Vital Signs/I&O 04/14/23 04/14/23 04/14/23 04/14/23 19:51 20:05 23:23 23:32 Temp 36.3 Pulse 69 54 51 Resp 18 B/P (MAP) 165/80 (108) 172/69 (103) Pulse Ox 92 97 96 O2 Delivery Room Air Room Air Nasal Cannula Nasal Cannula O2 Flow Rate 2.00 2.00 04/15/23 04/15/23 01:00 03:13 Temp 35.8 Pulse 50 54 Resp 20 B/P (MAP) 157/83 (107) Pulse Ox 96 O2 Delivery Nasal Cannula O2 Flow Rate 2.00 04/15/23 00:00 Intake Total 2780 ml Balance 2780 ml Capillary Refill : Less Than 3 Seconds Constitutional: AAO x 3, well-developed, well-nourished HEENT: PERRL, hearing is well preserved, oral hygience is good Neck: No carotid bruit; carotid pulses are 2 + bilaterally Respiratory: No accessory muscle use, No respiratory distress; chest expansion is symmetric, chest is bilaterally symmetric, lungs clear to auscultation, other (prolonged exp phase) Cardiovascular: regular rate-rhythm; No JVD; S1 and S2 Gastrointestinal: No tender; soft, round; No guarding; audible bowel sounds Extremities: no lower extremity edema bilateral Neurologic/Psychiatric: oriented x 3, other (moves all extremities) Skin: No rash on exposed areas, No ulcerations on exposed areas Data Review Labs Laboratory Tests 04/14/23 11:02: Sodium Level 142, Potassium Level 3.7, Chloride Level 107, Carbon Dioxide Level 25, Anion Gap 10, Blood Urea Nitrogen 6L, Creatinine 0.70, Estimat Glomerular Filtration Rate 106, BUN/Creatinine Ratio 9, Glucose Level 104, Calcium Level 9.6, Troponin I < 0.028, Triglycerides Level 167H, Cholesterol Level 152, LDL Cholesterol Direct 119, VLDL Cholesterol 33, HDL Cholesterol 23L 04/15/23 04:46: White Blood Count 10.2, Red Blood Count 4.74, Hemoglobin 14.5, Hematocrit 43, Mean Corpuscular Volume 90, Mean Corpuscular Hemoglobin 31, Mean Corpuscular Hemoglobin Concent 34, Red Cell Distribution Width 13.7, Platelet Count 226, Mean Platelet Volume 11.7 Radiology NAME: AQUILINO ALEJO MED REC#: [id number] PT STATUS: ADM Tina : 1965 PHYSICIAN: JOANNA MONROY MD ADMIT DATE: 04/14/23[facility] Signed Date of Exam:04/13/23 CHEST 1 VIEW, AP/PA ONLY INDICATION: Chest pain Single AP view of the chest is obtained with comparison made to study of 07/07/2022. FINDINGS: Heart size and pulmonary vascularity are within normal limits, and the lungs are clear, bilaterally. IMPRESSION: Unremarkable chest. Dictated by: Dictated on workstation # [id number] Dict: 04/14/23718 Trans: 04/14/23932 CVB [id number] Interpreted by: RODRI GONZALES MD Electronically signed by: RODRI GONZALES MD 04/14/23932 NAME: AQUILINO ALEJO [facility] REC#: [id number] PT STATUS: ADM Tina : 1965 PHYSICIAN: JOANNA MONROY MD ADMIT DATE: 04/14/23[facility] Signed Date of Exam:04/13/23 CT ANGIO CHEST W(R/O TAD) INDICATION: Chest pain and dyspnea. CTA of the chest is performed after bolus intravenous administration of iodinated contrast. Three-D reformatted images are produced. Automatic exposure controls were utilized to keep dose as low as reasonably achievable. COMPARISON: 06/04/2022 There is good opacification pulmonary arteries without intraluminal filling defect. Thoracic aorta is of normal caliber without evidence of dissection. There is no consolidation. No significant pleural or pericardial fluid is identified. Lucent regions in the spleen noted on the previous study are again noted and mildly increased in conspicuity. IMPRESSION: No CTA evidence of pulmonary embolism or other acute abnormality in the chest. Below the diaphragm, note is made of several low-density foci in the spleen which were present on the study of 06/04/2022 which have shown mild increase in prominence. Consideration could be given to followup abdominal CT if indicated. Dictated by: Dictated on workstation # [id number] Dict: 04/14/23700 Trans: 04/14/23846 CVB [id number] Interpreted by: RODRI GONZALES MD Electronically signed by: RODRI GONZALES MD 04/14/23 0847 ECG Impression ECG Initial ECG Rhythm: Normal Sinus A/P-Cardiology Assessment/Admission Diagnosis Chest pain Uncontrolled HTN Minimally elevated troponin - NSTEMI vs Type 2 MD secondary to uncontrolled HTN Ch tobacco use (more than 30 pack yrs) - cessation advised Abnormal ECG: - Borderline prolonged QTc on EKG of 10/14/13 and on EKG of 11/08/13 (range 460-468 msec) DM II - managed by PCP Carotid dz - Reports a vague h/o carotid arterial disease diagnosed by his previous crisis intervention counselor but does not know details Near syncope - of undetermined etiology - S/P ILR implant in Feb 2014 (has been non-compliant with f/u) - Cardiac cath from 11-09-2013 showed no angiographically significant coronary artery disease, [id number], normal LVEDP, no significant mitral regurg - Echocardiogram from 11-09-2013 showed mild enlargement of the left atrium and the left ventricle, LVEF 60%, trivial tricuspid regurg, no evidence of significant valvular stenosis, PASP 25 mmHg Reports h/o colon cancer - colon resection in early [address] Parkinson Discussion and Recomendations Chest pain of undetermined etiology - no further c/o Minimal troponin elevation - likely Type 2 MD secondary to uncontrolled HTN Uncontrolled HTN - Lisinopril has been resumed - Norvasc added - not a good candidate for BB d/t existing bradycardia - Echocardiogram today Replace electrolytes Monitor lab Further recs will be based on his hospital course We would like to thank medical services for this consult Clinical Quality Measures AMI/AHF: ASA po Prior to arrival: MELANI Colindres Apr 14, 2023 10:55
[2023-04-14 11:49] LABS: BUN/CREATININE RATIO 9; CALCIUM 9.6 MG/DL (8.5-10.1); CARBON DIOXIDE 25 MMOL/L (21-32); CHLORIDE 107 MMOL/L (98-107); CHOLESTEROL 152 MG/DL (< 200); GFR ESTIMATED 106; GLUCOSE 104 MG/DL (70-105); HDL CHOLESTEROL 23 MG/DL (40-60); POTASSIUM 3.7 MMOL/L (3.6-5.0); SODIUM 142 MMOL/L (135-145); TRIGLYCERIDES 167 MG/DL (<150); VLDL CHOLESTEROL 33 MG/DL (5-40)
--- NOTE | 2023-04-14 13:12 | Consultation-Cardiology ---
HPI-Cardiology Cardiology Consultation: Date of Consultation 04/14/23 Time Seen by a Provider: 12:50 Date of Admission Attending Physician [facility] Admitting Physician Admitting Physician: Hawa Pearson MD Attending Physician: Hawa Pearson MD Consulting Physician TEVIN GALVAN MD, MA, FACP, FACC, [facility], CCDS Physician requesting consult: Dr Pearson HPI: Chief Complaint: Reason for Card consult: Hypertension and chest discomfort Mr. Alejo is a 58 yr old male admitted to 509 from the ED with c/o CP. He reports last night when he went to bed he developed a sharp, localized, stabbing chest pain on the left side. No radiation. He reports the pain would last for a few seconds and then return. It did not change with deep breathing or movement. He denies any n/v/d. He denies any diaphoresis. He states he felt "hot". He reports having some dizziness last night. No c/o palpitations. He reports he did have a feeling of soreness in between his shoulder blades after the pain went away in the ED which has resolved. He smoke cigs approx 1 PPD. He reports he is supposed to be taking Lisinopril for BP, but he has not had it for several months. He reports no further c/o this morning. Review of Systems-Cardiology Review of Systems Constitutional: No chills, No fever; lightheadedness Eyes: No vision change Ears/Nose/Throat: No epistaxis, No recent hearing loss Respiratory: As described under HPI Cardiovascular: As described under HPI Gastrointestinal: No constipation, No diarrhea, No nausea, No vomiting Genitourinary: No hematuria Musculoskeletal: As describe under HPI Skin: No rash on exposed areas, No ulcerations on exposed areas Psychiatric/Neurological: No anxiety, No depression, No seizure, No focal weakness, No syncope Hematologic: No bleeding abnormalities DNC-Zgdpcx-Blpewh Hx Patient Social History Smoking Status: Heavy Tobacco Smoker 2nd Hand Smoke Exposure: Yes Alcohol Use?: No Pt feels they are or have been: No Tobacco type used: Cigarettes Immunizations Up To Date Tetanus Booster (TDap): Unknown Past Medical History PMH As described under Assessment. Family Medical History Family Medical History: No reported family h/o CAD Allergies and Home Medications Allergies Coded Allergies: Penicillins (Unverified Allergy, Unknown, 07/02/22) Patient Home Medication List Home Medication List Reviewed: Yes No Active Prescriptions or Reported Meds Physical Exam-Cardiology Physical Exam Vital Signs/I&O 04/14/23 04/14/23 04/14/23 04/14/23 02:03 02:24 02:24 03:12 Temp 36.5 Pulse 64 63 58 62 Resp 16 21 18 B/P (MAP) 190/85 179/85 (126) 179/87 (117) Pulse Ox 99 97 97 O2 Delivery Room Air Room Air Room Air 04/14/23 04/14/23 04/14/23 04/14/23 03:21 04:05 04:34 07:02 Temp 36.5 Pulse 61 61 55 Resp 18 B/P (MAP) 185/84 (125) 189/84 (119) Pulse Ox 97 97 97 O2 Delivery Room Air Room Air Room Air 04/14/23 04/14/23 04/14/23 04/14/23 07:48 08:34 09:16 09:42 Temp 36.5 Pulse 76 60 63 Resp 16 20 20 B/P (MAP) 139/116 (124) 172/92 (118) 185/82 (116) Pulse Ox 94 O2 Delivery Room Air Room Air 04/14/23 04/14/23 04/14/23 04/14/23 09:43 09:53 10:00 11:49 Pulse 63 58 71 Resp 18 18 20 B/P (MAP) 180/84 (116) 170/67 (101) Pulse Ox 94 95 100 O2 Delivery Room Air Room Air Room Air Room Air 04/14/23 12:47 Pulse 70 Capillary Refill : Less Than 3 Seconds Constitutional: AAO x 3, well-developed, well-nourished HEENT: PERRL, hearing is well preserved, oral hygience is good Neck: No carotid bruit; carotid pulses are 2 + bilaterally Respiratory: No accessory muscle use, No respiratory distress; chest expansion is symmetric, chest is bilaterally symmetric, lungs clear to auscultation, other (prolonged exp phase) Cardiovascular: regular rate-rhythm; No JVD; S1 and S2 Gastrointestinal: No tender; soft, round; No guarding; audible bowel sounds Extremities: no lower extremity edema bilateral Neurologic/Psychiatric: oriented x 3, other (moves all extremities) Skin: No rash on exposed areas, No ulcerations on exposed areas Data Review Labs Laboratory Tests 04/13/23 21:41: White Blood Count 13.3H, Red Blood Count 4.58, Hemoglobin 14.0, Hematocrit 42, Mean Corpuscular Volume 91, Mean Corpuscular Hemoglobin 31, Mean Corpuscular Hemoglobin Concent 34, Red Cell Distribution Width 13.7, Platelet Count 220, Mean Platelet Volume 11.5, Immature Granulocyte % (Auto) 0, Neutrophils (%) (Auto) 66, Lymphocytes (%) (Auto) 23, Monocytes (%) (Auto) 9, Eosinophils (%) (Auto) 2, Basophils (%) (Auto) 1, Neutrophils # (Auto) 8.7H, Lymphocytes # (Auto) 3.0, Monocytes # (Auto) 1.2H, Eosinophils # (Auto) 0.2, Basophils # (Auto) 0.1, Immature Granulocyte # (Auto) 0.1, Prothrombin Time 13.2, INR Comment 1.0, Activated Partial Thromboplast Time 33, Sodium Level 143, Potassium Level 3.3L, Chloride Level 107, Carbon Dioxide Level 24, Anion Gap 12, Blood Urea Nitrogen 6L, Creatinine 0.77, Estimat Glomerular Filtration Rate 103, BUN /Creatinine Ratio 8, Glucose Level 87, Calcium Level 9.3, Corrected Calcium 9.1, Magnesium Level 2.3, Total Bilirubin 0.4, Aspartate Amino Transf (AST/SGOT) 18, Alanine Aminotransferase (ALT/SGPT) 22, Alkaline Phosphatase 55, Myoglobin 25.1, Troponin I < 0.028, Total Protein 7.8, Albumin 4.3 04/14/23 00:30: Troponin I 0.043H 04/14/23 05:13: White Blood Count 11.7H, Red Blood Count 4.82, Hemoglobin 14.7, Hematocrit 44, Mean Corpuscular Volume 91, Mean Corpuscular Hemoglobin 31, Mean Corpuscular Hemoglobin Concent 34, Red Cell Distribution Width 13.7, Platelet Count 227, Mean Platelet Volume 12.2, Immature Granulocyte % (Auto) 0, Neutrophils (%) (Auto) 61, Lymphocytes (%) (Auto) 27, Monocytes (%) (Auto) 9, Eosinophils (%) (Auto) 2, Basophils (%) (Auto) 0, Neutrophils # (Auto) 7.2, Lymphocytes # (Auto) 3.2, Monocytes # (Auto) 1.0, Eosinophils # (Auto) 0.3, Basophils # (Auto) 0.1, Immature Granulocyte # (Auto) 0.0 04/14/23 11:02: Sodium Level 142, Potassium Level 3.7, Chloride Level 107, Carbon Dioxide Level 25, Anion Gap 10, Blood Urea Nitrogen 6L, Creatinine 0.70, Estimat Glomerular Filtration Rate 106, BUN/Creatinine Ratio 9, Glucose Level 104, Calcium Level 9.6, Troponin I < 0.028, Triglycerides Level 167H, Cholesterol Level 152, LDL Cholesterol Direct 119, VLDL Cholesterol 33, HDL Cholesterol 23L A/P-Cardiology Assessment/Admission Diagnosis Chest discomfort, atypical - no evidence of ACS - serial troponin measurement (normal - minimally elevated - normal, within 12 hours) does not fit [place] pattern. 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 Parkinson Discussion and Recomendations * Resume lisinopril * Add beta-mo and amlodipine * Advised to quit smoking * MPI advised for cor risk strat * Echo advised to eval for structural heart disease * Discussed with Dr Pearson Clinical Quality Measures AMI/AHF: ASA po Prior to arrival: TEVIN Cameron MD [facility] CCDS Apr 14, 2023 13:12
[2023-04-15 03:13] VITALS: BP 157/83
[2023-04-15 05:08] LABS: HEMATOCRIT 43 % (40-54); HEMOGLOBIN 14.5 g/dL (13.3-17.7); MEAN CORPUSCULAR HEMOGLOBIN 31 pg (25-34); MEAN CORPUSCULAR HGB CONC 34 g/dL (32-36); MEAN CORPUSCULAR VOLUME 90 fL (80-99); MEAN PLATELET VOLUME 11.7 fL (9.0-12.2); PLATELET COUNT 226 10^3/uL (130-400); WHITE BLOOD COUNT 10.2 10^3/uL (4.3-11.0)
--- NOTE | 2023-04-15 06:42 | Progress Note ---
Objective Exam Last Set of Vital Signs Vital Signs Date Time Temp Pulse Resp B/P (MAP) Pulse Ox O2 Delivery O2 Flow Rate FiO2 04/15/23 03:13 35.8 54 20 157/83 (107) 96 Nasal Cannula 2.00 Capillary Refill : Less Than 3 Seconds I&O Intake and Output 04/15/23 00:00 Intake Total 2930 ml Balance 2930 ml Intake Oral 2930 ml # Voids 12 # Bowel Movements 2 Daily Weight Change No Results/Procedures Lab Laboratory Tests 04/14/23 11:02: Sodium Level 142, Potassium Level 3.7, Chloride Level 107, Carbon Dioxide Level 25, Anion Gap 10, Blood Urea Nitrogen 6L, Creatinine 0.70, Estimat Glomerular Filtration Rate 106, BUN/Creatinine Ratio 9, Glucose Level 104, Calcium Level 9.6, Troponin I < 0.028, Triglycerides Level 167H, Cholesterol Level 152, LDL Cholesterol Direct 119, VLDL Cholesterol 33, HDL Cholesterol 23L 04/15/23 04:46: White Blood Count 10.2, Red Blood Count 4.74, Hemoglobin 14.5, Hematocrit 43, Mean Corpuscular Volume 90, Mean Corpuscular Hemoglobin 31, Mean Corpuscular Hemoglobin Concent 34, Red Cell Distribution Width 13.7, Platelet Count 226, Mean Platelet Volume 11.7 Radiology NAME: AQUILINO WAITE [facility] REC#: [id number] PT STATUS: ADM Tina : 1965 PHYSICIAN: JOANNA MONROY MD ADMIT DATE: 04/14/23/[facility] Signed Date of Exam:04/13/23 CHEST 1 VIEW, AP/PA ONLY INDICATION: Chest pain Single AP view of the chest is obtained with comparison made to study of 07/07/2022. FINDINGS: Heart size and pulmonary vascularity are within normal limits, and the lungs are clear, bilaterally. IMPRESSION: Unremarkable chest. Dictated by: Dictated on workstation # [id number] Dict: 04/14/23718 Trans: 04/14/23932 CV [id number] Interpreted by: RODRI GONZALES MD Electronically signed by: RODRI GONZALES MD 04/14/23932 NAME: MARIANNAQUILINO [facility] REC#: [id number] PT STATUS: ADM Tina : 1965 PHYSICIAN: JOANNA MONROY MD ADMIT DATE: 04/14/23/[facility] Signed Date of Exam:04/13/23 CT ANGIO CHEST W(R/O TAD) INDICATION: Chest pain and dyspnea. CTA of the chest is performed after bolus intravenous administration of iodinated contrast. Three-D reformatted images are produced. Automatic exposure controls were utilized to keep dose as low as reasonably achievable. COMPARISON: 06/04/2022 There is good opacification pulmonary arteries without intraluminal filling defect. Thoracic aorta is of normal caliber without evidence of dissection. There is no consolidation. No significant pleural or pericardial fluid is identified. Lucent regions in the spleen noted on the previous study are again noted and mildly increased in conspicuity. IMPRESSION: No CTA evidence of pulmonary embolism or other acute abnormality in the chest. Below the diaphragm, note is made of several low-density foci in the spleen which were present on the study of 06/04/2022 which have shown mild increase in prominence. Consideration could be given to followup abdominal CT if indicated. Dictated by: Dictated on workstation # [id number] Dict: 04/14/23 0701 Trans: 04/14/23 0847 CV [id number] Interpreted by: RODRI GONZALES MD Electronically signed by: RODRI GONZALES MD 04/14/23 0847 Assessment/Plan Assessment/Plan (1) Chest pain Status: Acute Assessment & Plan: Acute onset central chest pain that radiates to the back 04/13 Denies chest pain on exam 04/14 PLAN: Cardiology consult - recommend stress test Telemetry Echo CTA chest: NEG for PE or AA Nitroglycerin Morphine Troponin <0.038-->0.043-->0.028 Qualifiers: Qualified Codes: R07.9 - Chest pain, unspecified (2) Hypertension Status: Chronic Assessment & Plan: PLAN: RADIOLOGIC TECH lisinopril Hydralazine for SBP >200 Telemetry (3) Diabetes mellitus, type 2 Status: Chronic Assessment & Plan: Pt reports no current home medication, previously on Metformin PLAN: Low-dose insulin slide scale ACHS BG Clinical Quality Measures AMI/AHF: ASA po Prior to arrival: No MARYLU HERRERA MD,RESIDENT Apr 15, 2023 06:41
[2023-04-15] MEDS ORDERED: REGADENOSON 0.4 MG/5 ML SYR IV ONE ×2 (07:54→08:15)
[2023-04-15 08:12] VITALS: BP 143/65
[2023-04-15 09:32] VITALS: BP 168/76
[2023-04-15] MEDS: ASPIRIN enteric coated 81MG TABLET PO SCH (09:33)
[2023-04-15] MEDS: amLODIPine 10 MG TABLET PO SCH (09:34)
[2023-04-15] MEDS ORDERED: NS 100 ML (IVPB) BAG IV ONE (10:30)
[2023-04-15] MEDS ORDERED: IOHEXOL 350 MG/ML 100 ML (OMNIPAQUE 350) VIAL IV ONE (10:30)
[2023-04-15] MEDS ORDERED: HOLD METFORMIN - RECEIVED CONTRAST 20 ML VIAL IV SCH (10:30)
--- NOTE | 2023-04-15 12:16 | Discharge Summary ---
MARYLU HERRERA MD,RESIDENT 04/15/23 1216: Discharge Summary Hospital Course Problems/Diagnosis: (1) Chest pain Status: Acute Assessment & Plan: Acute onset central chest pain that radiates to the back 04/13 Denies chest pain on exam 04/14 PLAN: Cardiology consult - recommend stress test Telemetry Echo CTA chest: NEG for PE or AA Nitroglycerin Morphine Troponin <0.038-->0.043-->0.028 Qualifiers: Qualified Codes: R07.9 - Chest pain, unspecified (2) Hypertension Status: Chronic Assessment & Plan: PLAN: ROUNDER HAND lisinopril Hydralazine for SBP >200 Telemetry (3) Diabetes mellitus, type 2 Status: Chronic Assessment & Plan: Pt reports no current home medication, previously on Metformin PLAN: Low-dose insulin slide scale ACHS BG Hospital Course Date of Admission: Apr 14, 2023 at 02:08 Admission Diagnosis : Family Physician/Provider: Roxanne Blela Aprn Date of Discharge: 04/15/23 Discharge Diagnosis: Chest pain Hospital Course: Pt presented to the ED for acute onset central CP that radiates to his back with associated SOB on ambulation. EKG demonstrated LVH and nonspecific ST T changes. Troponin <0.028. Admitted for further management. Cardiology consulted. Echo and stress test performed, no acute intervention necessary. Will follow-up with cardiology outpatient. Pt will be sent home with antihypertensive medications. Labs and Pending Lab Test: Laboratory Tests 04/15/23 04:46: White Blood Count 10.2, Red Blood Count 4.74, Hemoglobin 14.5, Hematocrit 43, Mean Corpuscular Volume 90, Mean Corpuscular Hemoglobin 31, Mean Corpuscular Hemoglobin Concent 34, Red Cell Distribution Width 13.7, Platelet Count 226, Mean Platelet Volume 11.7 Home Meds Active No Active Prescriptions or Reported Medications Assessment/Pt DC Instructions Chest pain CAD Follow-up within 7 days of discharge with your primary care doctor and with Agricultural Pilot, Dr. Castellano. Discharge Diet: No Restrictions Activity as Tolerated: Yes Discharge Physical Examination Allergies: Coded Allergies: Penicillins (Unverified Allergy, Unknown, 07/02/22) General Appearance: No Apparent Distress Respiratory: Chest Non Tender, Lungs Clear, Normal Breath Sounds, No Accessory Muscle Use, No Respiratory Distress Cardiovascular: Regular Rate, Rhythm Gastrointestinal: No Pulsatile Mass, Soft Skin: Warm/Dry Neurologic/Psychiatric: Alert, Oriented x3, Normal Mood/Affect Clinical Quality Measures AMI/AHF: ASA po Prior to arrival: No MIA CRISOSTOMO MD 04/15/23 1526: Discharge Summary Discharge Physical Examination Allergies: Coded Allergies: Penicillins (Unverified Allergy, Unknown, 07/02/22) General Appearance: No Apparent Distress Respiratory: Lungs Clear, Normal Breath Sounds Cardiovascular: Regular Rate, Rhythm Gastrointestinal: Normal Bowel Sounds, Non Tender, Soft Extremity: No Pedal Edema Neurologic/Psychiatric: Alert, Normal Mood/Affect Supervisory-Addendum Brief Supervisory Addendum I personally performed the inman portions of the visit, discussed case with resident and concur with resident documentation of history, physical exam, assessment and treatment plan unless otherwise noted. MARYLU HERRERA MD,RESIDENT Apr 15, 2023 12:16 MIA CRISOSTOMO MD Apr 15, 2023 15:26
[2023-04-15] MEDS ORDERED: LISI20TA26 PO (12:18)
[2023-04-15] MEDS ORDERED: AMLO-251 PO (12:18)
[2023-04-15] MEDS ORDERED: ASPI-1238 PO (12:18)
[2023-04-15 12:27] VITALS: BP 149/70
--- NOTE | 2023-04-15 13:07 | STRESS TEST ---
DATE OF SERVICE: 04/15/2023 RESTING AND POST REGADENOSON TECHNETIUM-99M TETROFOSMIN SPECT CT IMAGING ORDERING PHYSICIAN: Dr. Castellano. PRIMARY PHYSICIAN: Dr. Pearson. CLINICAL DIAGNOSIS: Chest discomfort. Baseline images were carried out after injection of 10.16 mCi technetium-99m tetrofosmin. This was followed by 0.4 mg regadenoson and 31.2 mCi of technetium-99m tetrofosmin for stress imaging. Electrocardiogram showed sinus rhythm with evidence of left ventricular hypertrophy with repolarization abnormality. The electrocardiogram did not change significantly with regadenoson infusion. The patient tolerated the procedure well. Review of images at rest and following stress does not indicate any distinct perfusion defects consistent with significant myocardial ischemia or infarction. Some degree of diaphragmatic attenuation is seen both at rest and following regadenoson infusion. Gated images show normal global left ventricular systolic function with normal regional wall motion, including the diaphragmatic wall of the left ventricle. Left ventricular ejection fraction is calculated to be 51%. Left ventricular end-diastolic volume is 120 mL. TID is absent (1.13). CONCLUSIONS: 1. Mild cardiomegaly. 2. No evidence of significant myocardial ischemia or infarction on this study. 3. No regional wall motion abnormality. 4. Left ventricular ejection fraction 51%. Job ID: [id number] DocumentID: [id number] Dictated Date: 04/15/2023 10:15:55 Transportation Services Representative Date: 04/15/2023 13:05:00 Dictated By: TEVIN CASTELLANO MD; JONELLE; FACP; FACC;
--- NOTE | 2023-04-15 14:11 | Diagnostic Imaging Report ---
EXAMINATION: CT abdomen with intravenous contrast. TECHNIQUE: Multiple contiguous axial images were obtained through the abdomen after the administration of intravenous contrast. All CT scans use one or more of the following dose optimizing techniques: automated exposure control, MA and/or KvP adjustment based on patient size and exam type or iterative reconstruction. HISTORY: Splenic lesion evaluation COMPARISON: 06/04/2022 FINDINGS: Lung bases: Atelectasis or scarring within the lung bases. Solid organs: The liver is normal without focal lesion. The gallbladder is normal. There is no biliary ductal dilation. Pancreas is normal. There is an indeterminate 2.4 x 1.9 cm hypoattenuating lesion within the spleen which is not significantly changed from prior exam on 06/04/2022. Adrenal glands are normal. 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 Bowel: Surgical changes of the gastroesophageal junction possibly from prior fundoplication. There is no bowel obstruction. Surgical changes of the visualized proximal colon. Peritoneum: There is no intraperitoneal free fluid or free air. No suspicious lymphadenopathy. Vasculature: Calcification of the aorta without aneurysm. Musculoskeletal: Degenerative changes of the spine without suspicious osseous lesion or compression fracture. IMPRESSION: 1. Overall stable size and appearance of the indeterminate splenic lesion compared to prior exam on 06/04/2022. 2. No other acute abnormality in the visualized abdomen. Dictated by: Dictated on workstation # [id number]
--- NOTE | 2023-04-15 14:39 | Progress Note - Cardiology ---
Cardiology SOAP Progress Note Subjective: No cp or palp or syncope or shortness of breath No n/v/d No focal weakness Objective: I&O/Vital Signs 04/15/23 04/15/23 04/15/23 04/15/23 03:13 08:00 08:12 09:32 Temp 35.8 36.0 Pulse 54 53 53 Resp 20 16 B/P (MAP) 157/83 (107) 143/65 (91) 168/76 (106) Pulse Ox 96 98 O2 Delivery Nasal Cannula Room Air Nasal Cannula O2 Flow Rate 2.00 2.00 04/15/23 04/15/23 04/15/23 09:35 12:00 12:27 Temp 36.4 Pulse 51 66 65 Resp 16 B/P (MAP) 149/70 (96) Pulse Ox 94 O2 Delivery Room Air 04/15/23 00:00 Intake Total 2780 ml Balance 2780 ml Weight (Pounds): 232 Weight (Calculated Kilograms): 105.973168 Constitutional: AAO x 3, well-developed, well-nourished Respiratory: No accessory muscle use, No respiratory distress; chest expansion is symmetric, chest is bilaterally symmetric, lungs clear to auscultation, other (prolonged exp phase) Cardiovascular: regular rate-rhythm; No JVD; S1 and S2 Gastrointestional: No tender; soft, round; No guarding; audible bowel sounds Extremities: no lower extremity edema bilateral Neurologic/Psychiatric: oriented x 3, other (moves all extremities) Skin: No rash on exposed areas, No ulcerations on exposed areas Results/Procedures: Labs Laboratory Tests 04/15/23 04:46: White Blood Count 10.2, Red Blood Count 4.74, Hemoglobin 14.5, Hematocrit 43, Mean Corpuscular Volume 90, Mean Corpuscular Hemoglobin 31, Mean Corpuscular Hemoglobin Concent 34, Red Cell Distribution Width 13.7, Platelet Count 226, Mean Platelet Volume 11.7 A/P: Assessment: Chest discomfort, atypical - no evidence of ACS - serial troponin measurement (normal - minimally elevated - normal, within 12 hours) does not fit [place] pattern. Minimal troponin elevation appears to be lab error - MPI on 04-15-23: Mild cardiomegaly. No evidence of significant myocardial ischemia or infarction on this study. No regional wall motion abnormality. Left ventricular ejection fraction 51%. 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 Parkinson Plan: * Continue antihypertensive regimen * Advised to quit smoking immediately and completely * Outpt f/u advised * Ok to d/c from cardiac standpoint * Discussed with Dr Pearson Clinical Quality Measures AMI/AHF: ASA po Prior to arrival: TEVIN Cameron MD FACP [facility] CCDS Apr 15, 2023 14:39
[2023-04-15 15:16] VITALS: BP 149/70
== END 2023-04-15 14:55 | disposition home or self-care (01) ==
LOC: EDUNIT# 21:25 → ER 21:27 → CSD 21:28 → UNDOADMOB 04-14 02:08 → CSD 04-14 07:49 → UNDODISOB 04-15 14:55
PROVIDERS: ADMIT Family Medicine; ATTEND Family Medicine
DX: R07.89 Other chest pain (principal); I10 Essential (primary) hypertension; E11.9 Type 2 diabetes mellitus without complications; I21.4 Non-ST elevation (NSTEMI) myocardial infarction; R94.31 Abnormal electrocardiogram [ECG] [EKG]; I65.23 Occlusion and stenosis of bilateral carotid arteries; R55 Syncope and collapse; F17.210 Nicotine dependence, cigarettes, uncomplicated; Z85.038 Personal history of other malignant neoplasm of large intestine; Z91.199 Patient's noncompliance with other medical treatment and regimen due to unspecified reason
CPT/HCPCS: 71045; 71275; 74160; 78452; 80048; 80053; 80061; 83735; 83874; 84484 ×2; 85025 ×2; 85027; 85610; 85730; 93005; 93017; 93041; 96376; 99284; A9502; C8929; G0378; 36415; 93306